=== PATIENT | female | born 1945 | race African-American/Black ===

== ENCOUNTER 2016-10-05 21:53 | Inpatient (IN) ==
[2016-10-05] MEDS ORDERED: ALBUTEROL 2.5 MG/3 ML NEB RESP TX STA (22:22)
[2016-10-05] MEDS ORDERED: methylPREDNISolone SOD SUC 125 MG/2 ML VIAL IV ONE (22:22)
[2016-10-05] MEDS ORDERED: methylPREDNISolone SOD SUC 125 MG/2 ML VIAL ONE (22:29)
[2016-10-05 22:58] LABS: Calcium 8.8 MG/DL (8.5-10.1); Magnesium 1.9 MG/DL (1.8-2.4); Osmolality,Calculated 294.8 MOS/KG (273-304); Potassium 3.9 MMOL/L (3.5-5.1)
[2016-10-05 23:04] LABS: Basophils % 0.2 % (0.0-0.8); Eosinophils % 0.6 % (0.00-10.9); Hemoglobin 12.1 GM/DL (12.0-16.0); Immature Granulocytes % 0.4 %; Immature Granulocytes Absolute 0.02 #; Lymphocytes # 2.9 10*3/uL (1.4-4.0); Lymphocytes % 57.4 % (21.3-54.2); Mean Corpuscular HGB Conc 32.7 GM/DL (32-36); Mean Corpuscular Hemoglobin 27 PG (27-34); Mean Corpuscular Volume 83.7 FL (87-102); Mean Platelet Volume 10.9 FL (9.6-12.0); Monocytes # 0.3 10*3/uL (0.11-0.8); Monocytes % 6.6 % (1.7-12.7); Neutrophils # 1.7 10*3/uL (1.4-7.4); Neutrophils % 34.8 % (38.7-73.9); Platelet Count 185 T/CUMM (130-400); Red Blood Count 4.42 MC/CUMM (3.8-5.5); Red Cell Distribution Width 14.1 % (9.3-17.3)
--- NOTE | 2016-10-05 23:04 | Emergency Department Note ---
Daniel Patten Emily, am scribing for, and in the presence of, Qasim Saeed MD 22: 30. Christophe Patten Robert M, MD, personally performed the services described in this documentation, ascribed by Hilda Sanchez in my presence, and it is both accurate and complete . Arrival - Arrival Chief Complaint: Shortness of Breath Stated Complaint: Wheezing/SOB/headache/dehydaration/chest pain ED Nursing Triage Note: Patient to room. She states that she has been short of breath for 2 months. She states she has been to multiple doctors and is not getting any better. Patient does have auible wheezing in triage. Patient has hx of lung cancer. Patient has had the right middle and lower lobe removed. Mode of Arrival: Ambulatory Limitations: No Limitations Source: Patient Time Seen by Provider: 10/05/16 22:14 - History of Present Illness HPI Narrative: Pt is a 71 y/o female who came to ED with c/o SOB that has been ongoing for 2 months now. Pt has seen multiple providers that prescribed abx, steroids, and breathing tx; with no relief. Pt has had coughing, subjective fevers, wheezing , but denies chest pain or any other pains. Pt denies smoking, ever. PMHx of right middle and lower lobe of lung removed in 2009 in [place], HTN, IDMM. Onset (ago): month(s) Consistency: constant Severity: mild, moderate Severity scale (1-10): 4 Quality: fullness Allergies/Adverse Reactions: Allergies Allergy/AdvReac Type Severity Reaction Status Date / Time lisinopril Allergy ANAPHYLAXIS Verified 10/05/16 22:04 Review of System - Review of System 12 point system: reviewed and no additional remarkable complaints except as stated - Review of System Constitutional: Present: fever (sunjective). Absent: chills Respiratory: Present: cough, respiratory distress, wheezing Cardiovascular: Absent: chest pain, palpitations, edema Gastrointestinal: Absent: abdominal pain, nausea, vomiting Musculoskeletal: Absent: arm pain, back pain, leg pain, neck pain Skin: Absent: rash Neurological: Absent: headache Medical,Surgical,& Family Hx - Medical History Cardio: History of: Hypertension Endocrine: History of: Diabetes Mellitus (IDDM) Respiratory: History of: Asthma, Bronchitis, Lung Cancer - Surgical History Thoracic Surgeries: Surgical HX of;: Lobectomy Abdominal Surgeries: Surgical HX of: Hernia Repair - Family History Family History: noncontributory - Social History Smoking Status: Never smoker Frequency of Alcohol Use: None Type of Drug Use: None Functional capacity: independent ambulation Exam Vital Signs: Vital Signs Temperature 97.7 F 10/05/16 22:32 Pulse Rate 79 10/05/16 22:35 Respiratory Rate 26 H 10/05/16 22:35 Blood Pressure 143/77 10/05/16 22:32 O2 Sat by Pulse Oximetry 100 10/05/16 22:35 - General General appearance: alert, in no apparent distress, obese - Head Head exam: Present: atraumatic, normocephalic - Eye Eye exam: Present: PERRL, EOMI - ENT ENT exam: Present: mucous membranes moist. Absent: mucous membranes dry - Neck Neck exam: Present: full ROM. Absent: tenderness - Chest Chest inspection: Present: symmetric chest wall rise, tenderness - Respiratory Respiratory exam: Present: respiratory distress, wheezes (diffusely), other ( tachypneic; too distant to speak). Absent: normal lung sounds bilaterally - Cardiovascular Cardiovascular exam: Present: regular rate, normal rhythm, normal heart sounds - Abdominal Exam Abdominal exam: Present: soft. Absent: tenderness - Extremities Exam Extremities exam: Present: full ROM. Absent: tenderness, pedal edema - Neurological Exam Neurological exam: Present: alert, oriented X3, CN II-XII intact. Absent: motor sensory deficit - Psychiatric Psychiatric exam: Present: normal affect, normal mood - Skin Skin exam: Present: warm, dry, intact, normal color Course - Consultations Consultation #1: Dr. Jens Duncan will evaluate and admit the patient. Time: 23:29 Results - Labs CBC & BMP: 10/05/16 22:13 10/05/16 22:13 Disposition Clinical Impression: Reversible obstructive airway disease Case discussed with: patient, patient's family Disposition: Still a Patient Condition: Stable Time of Disposition: 23:30
[2016-10-05 23:58] LABS: Band Neutrophils 2 % (0-10); Lymphocytes 58 % (20-55); Platelet Estimate Normal; Segmented Neutrophils 32 % (50-85); Total Cells Counted 100
[2016-10-05 23:59] LABS: Hypochromasia Slight
--- NOTE | 2016-10-06 00:25 | Hospitalist History & Physical ---
Assessment and Plan (1) Asthma exacerbation Status: Acute Current Visit: Yes (2) History of lung cancer Status: Acute Current Visit: Yes (3) Hypertension Status: Acute Current Visit: Yes (4) Diabetes Status: Acute Assessment and plan: Admit patient to our service. Schedule her breathing treatments scheduled steroids. Currently no clear indication for antibiotics. Accu-Cheks before meals and at bedtime. Consult pulmonary. Patient would benefit from a ice puller locally. We will start her on high-dose sliding scale for now. Current Visit: Yes History of Present Illness Chief complaint: Shortness of breath History of present illness: Ms. Rich is a 71 year old female with medical problems including history of lung cancer status post surgery in 2009, asthma, diabetes, and hypertension has been experiencing shortness of breath and wheezing 2 months. Patient still does report that she has been to multiple doctors including her lung doctor in [place]. She also follows with an oncologist in [place]. She goes to [facility] in [facility]. She has been to the ER in [place] several times with these complaints. Family reports that it seems to improve with steroids initially then it comes back. The symptoms have come to a point where she wheezes all the time is on schedule breathing treatments every 4 hours. I was consulted to admit the patient to the emergency room. Patient has audible wheezing. Home Medications Medication Instructions Recorded Confirmed Type Amlodipine Besylate [Amlodipine 2.5 mg PO DAILY 10/06/16 10/06/16 History Besylate] Aspirin 325 mg PO DAILY 10/06/16 10/06/16 History Bumetanide [Bumetanide] 2 mg PO DAILY 10/06/16 10/06/16 History Cinnamon Bark [Cinnamon] 500 mg PO DAILY 10/06/16 10/06/16 History Doxycycline Hyclate [Doxycycline 100 mg PO BID 10/06/16 10/06/16 History Hyclate] Ezetimibe [Zetia] 10 mg PO DAILY 10/06/16 10/06/16 History Gabapentin [Gabapentin] 300 mg PO BID 10/06/16 10/06/16 History Loratadine Tab [Claritin Tab] 10 mg PO DAILY 10/06/16 10/06/16 History Lubiprostone [Amitiza] 24 mcg PO BID 10/06/16 10/06/16 History Metformin HCl [Metformin HCl] 850 mg PO BID W/MEALS 10/06/16 10/06/16 History [place]-3S/Dha/Epa/Fish Oil [Fish 1 each PO DAILY 10/06/16 10/06/16 History Oil [place]-3 Softgel] Promethazine HCl [Promethazine HCl] 25 mg PO Q4-6H PRN 10/06/16 10/06/16 History Rosuvastatin Calcium [Rosuvastatin 10 mg PO BEDTIME 10/06/16 10/06/16 History Calcium] Tizanidine HCl [Tizanidine HCl] 4 mg PO BID 10/06/16 10/06/16 History Tramadol HCl [Tramadol Tab] 50 mg PO Q6HR PRN 10/06/16 10/06/16 History predniSONE TAB [PredniSONE] 10 mg PO DAILY 10/06/16 10/06/16 History Allergies Allergy/AdvReac Type Severity Reaction Status Date / Time lisinopril Allergy ANAPHYLAXIS Verified 10/05/16 22:04 Medical,Surgical,& Family Hx - Medical History Cardio: History of: Hypertension Endocrine: History of: Diabetes Mellitus (IDDM) Respiratory: History of: Asthma, Bronchitis, Lung Cancer - Surgical History Thoracic Surgeries: Surgical HX of;: Lobectomy Abdominal Surgeries: Surgical HX of: Hernia Repair - Family History Family History: Reports;: Family Cancer, Family Diabetes, Family Heart Disease - Social History Smoking Status: Never smoker Frequency of Alcohol Use: None Type of Drug Use: None 12 point system: reviewed and no additional remarkable complaints except as stated Exam - Constitutional Vitals: - General General appearance: alert, in no apparent distress, obese - Head Head exam: Present: atraumatic, normocephalic - Eye Eye exam: Present: PERRL, EOMI - ENT ENT exam: Present: mucous membranes moist. Absent: mucous membranes dry - Neck Neck exam: Present: full ROM. Absent: tenderness - Chest Chest inspection: Present: symmetric chest wall rise, tenderness - Respiratory Respiratory exam: Present: respiratory distress, wheezes bilateral - Cardiovascular Cardiovascular exam: Present: regular rate, normal rhythm, normal heart sounds - Abdominal Exam Abdominal exam: Present: soft. Absent: tenderness - Extremities Exam Extremities exam: Present: full ROM. Absent: tenderness, pedal edema - Neurological Exam Neurological exam: Present: alert, oriented X3, CN II-XII intact. Absent: motor sensory deficit - Psychiatric Psychiatric exam: Present: normal affect, normal mood - Skin Skin exam: Present: warm, dry, intact, normal color Results - Labs CBC & BMP: 10/05/16 22:13 10/06/16 02:42
[2016-10-06] MEDS ORDERED: ONDANSETRON 4 MG/2 ML VIAL IV PRN (00:31)
[2016-10-06] MEDS ORDERED: DEXTROSE 50% 25 GM/50 ML VIAL IV PRN ×2 (00:31)
[2016-10-06] MEDS ORDERED: ACETAMINOPHEN 325 MG TABLET PO PRN (00:31)
[2016-10-06] MEDS ORDERED: ALBUTEROL 2.5 MG/3 ML NEB RESP TX PRN (00:31)
[2016-10-06] MEDS ORDERED: GLUCAGON 1 MG VIAL IM PRN ×2 (00:31)
[2016-10-06] MEDS ORDERED: traMADol 50 MG TABLET PO PRN (01:40)
[2016-10-06] MEDS ORDERED: PROMETHAZINE 25 MG TABLET PO PRN (01:40)
[2016-10-06] MEDS: ALBUTEROL/IPRATROPIUM 3 ML NEB RESP TX SCH ×4 (01:51→19:44)
[2016-10-06] MEDS: ENOXAPARIN 40 MG/0.4 ML SYRINGE SUBCUT SCH (03:04)
[2016-10-06] MEDS: MONTELUKAST 10 MG TABLET PO SCH ×2 (03:04→20:18)
[2016-10-06] MEDS: SODIUM CHLORIDE 0.9% 1,000 ML IV SCH ×2 (03:05→20:53)
[2016-10-06] MEDS ORDERED: INSULIN REGULAR 100 UNIT/ML ONE (03:32)
[2016-10-06] MEDS: INSULIN REGULAR 100 UNIT/ML SUBCUT SCH ×5 (03:34→20:53)
[2016-10-06] MEDS ORDERED: INSULIN REGULAR 100 UNIT/ML IV ONE (05:36)
[2016-10-06] MEDS ORDERED: INSULIN REGULAR 100 UNIT/ML SUBCUT ONE (06:30)
[2016-10-06] MEDS: amLODIPine 2.5 MG TABLET PO SCH ×2 (07:29→08:22)
[2016-10-06] MEDS: LORATADINE 10 MG TABLET PO SCH ×2 (07:29→08:22)
[2016-10-06] MEDS: EZETIMIBE 10 MG TABLET PO SCH ×2 (07:30→08:22)
[2016-10-06] MEDS: ASPIRIN 325 MG TABLET PO SCH ×2 (07:30→08:21)
[2016-10-06] MEDS: BUMETANIDE 1 MG TABLET PO SCH ×2 (07:30→08:21)
[2016-10-06] MEDS: methylPREDNISolone SOD SUC 125 MG/2 ML VIAL IV SCH ×3 (07:30→20:18)
[2016-10-06] MEDS: PANTOPRAZOLE 40 MG TABLET PO SCH ×2 (07:30→08:22)
[2016-10-06] MEDS: DOCUSATE SODIUM 100 MG CAPSULE PO PRN ×2 (07:30→20:18)
[2016-10-06] MEDS: OMEGA 3 ACID ETHYL ESTERS 1 GM CAPSULE PO SCH ×2 (07:30→08:22)
[2016-10-06 07:36] LABS: Basophils % 0.2 % (0.0-0.8); Hemoglobin 11.4 GM/DL (12.0-16.0); Immature Granulocytes % 0.5 %; Immature Granulocytes Absolute 0.03 #; Lymphocytes # 1.2 10*3/uL (1.4-4.0); Lymphocytes % 19.8 % (21.3-54.2); Mean Corpuscular HGB Conc 31.7 GM/DL (32-36); Mean Corpuscular Hemoglobin 27 PG (27-34); Mean Corpuscular Volume 85.1 FL (87-102); Mean Platelet Volume 10.2 FL (9.6-12.0); Monocytes # 0.1 10*3/uL (0.11-0.8); Monocytes % 1.6 % (1.7-12.7); Neutrophils # 4.8 10*3/uL (1.4-7.4); Neutrophils % 77.9 % (38.7-73.9); Platelet Count 151 T/CUMM (130-400); Red Blood Count 4.23 MC/CUMM (3.8-5.5); Red Cell Distribution Width 14.1 % (9.3-17.3); White Blood Count 6.2 T/CUMM (4-12)
--- NOTE | 2016-10-06 07:52 | XRay Report ---
History: Chest pain. Shortness of breath Date: 10/05/2016 Study: Chest x-ray AP portable Comparison exam: September 08, 2014 chest x-ray There is stable cardiomegaly. There is no mediastinal mass. The pulmonary vasculature is not engorged. There is mild platelike scarring in the lower lungs. There is no definite acute infiltrate. There is no gross pleural effusion. There is moderate thoracic spondylosis. Impression: No acute cardiopulmonary process. Continued cardiomegaly. Scarring in the lower lungs as before PROCEDURE INTERPRETED AT [facility] DEPARTMENT OF RADIOLOGY Final Report Signed by: Dr. Kimberly Canales
[2016-10-06 08:02] LABS: Calcium 8.6 MG/DL (8.5-10.1); Osmolality,Calculated 296.1 MOS/KG (273-304); Potassium 4.2 MMOL/L (3.5-5.1)
[2016-10-06 08:04] LABS: Band Neutrophils 2 % (0-10); Hypochromasia 1+; Lymphocytes 15 % (20-55); Microcytosis 1+; Ovalocytes Slight; Platelet Estimate Adequate; Segmented Neutrophils 81 % (50-85); Total Cells Counted 100
[2016-10-06] MEDS: GABAPENTIN 300 MG CAPSULE PO SCH ×2 (08:30→20:18)
[2016-10-06] MEDS: tiZANidine 4 MG TABLET PO SCH ×2 (08:30→20:18)
[2016-10-06] MEDS: LUBIPROSTONE 24 MCG CAPSULE PO SCH ×2 (08:30→20:18)
[2016-10-06] MEDS ORDERED: NON-FORMULARY MEDICATION (Cinnamon Bark [Cinnamon] 500 MG) PO SCH (09:00)
[2016-10-06] MEDS ORDERED: DOXYCYCLINE HYCLATE 100 MG CAPSULE PO SCH (09:00)
[2016-10-06] MEDS: INSULIN LISPRO 100 UNIT/ML SUBCUT SCH ×2 (12:15→17:00)
--- NOTE | 2016-10-06 12:24 | Hospitalist Progress Note ---
Assessment and Plan - Time spent with patient Time spent with patient: Greater than 30 minutes (1) Asthma exacerbation Status: Acute Current Visit: Yes (2) History of lung cancer Status: Acute Current Visit: Yes (3) Hypertension Status: Acute Current Visit: Yes (4) Diabetes Status: Acute Assessment and plan: Resume her home insulin at a slightly lower dose, start with Lantus 40 units and lispro have 15 units 3 times daily before meals. Continue respiratory therapy. Taper steroids. No need for IV antibiotics at this time. Reviewed and continue other home medication Anticipate short hospital stay Current Visit: Yes Hospitalist: Subjective Interval history: Admitted overnight for shortness of breath suspected to be related to asthma. Shortness of breath has improved slightly Uncontrolled blood glucose overnight noted, this may have been made worse by steroid. Her fingerstick glucoses have slightly improved this morning. She states that home finger stick glucose is usually in good range. Exam - Constitutional Vitals: Period Temp Pulse Resp BP Sys/[place] Pulse Ox Last 24 Hr 97.3 F-97.5 F 61-82 20-25 134-158/68-99 95-99 General appearance: mild distress, over weight - Head Head exam: Present: normal inspection, normocephalic, atraumatic - Eye Eye exam: Present: EOMI Pupils: Present: CHRIS - Neck Neck exam: Present: normal inspection. Absent: thyromegaly - Respiratory Respiratory exam: Present: rhonchi, wheezes - Cardiovascular Cardiovascular exam: Present: regular rate and rhythm. Absent: JVD - GI/Abdominal GI/Abdominal exam: Present: normal bowel sounds, soft. Absent: ascites, distended, tenderness - Neurological Exam Neurological exam: Present: alert, oriented X3 - Skin Skin exam: Present: normal color, warm, dry Results - Labs CBC & BMP: 10/06/16 06:46 10/06/16 06:46 Lab Results: I have reviewed the past 24 hour labs
--- NOTE | 2016-10-06 19:19 | EKG Report ---
Stationary ECG Study [facility] ER Test Date: 10/05/2016 10:06:08 PM Pat Name: JAXON TA Department: Room: 532 Gender: F Reheater: Watson : 1945 Requested by: Qasim Saeed Order Number: [id number] Reading MD: MANN HART Intervals [place] Rate: 80 P: 49 NM: 173 QRS: 31 QRSD: 103 T: 267 QT: 377 QTc: 413 Interpretive Statements SINUS RHYTHM Electronically Signed On 10-08-16 12:26:44 CDT by MANN HART [email or web address]
[2016-10-06] MEDS: ZALEPLON 5 MG CAPSULE PO PRN (20:18)
[2016-10-06] MEDS: ROSUVASTATIN 10 MG TABLET PO SCH (20:19)
--- NOTE | 2016-10-06 20:50 | Pulmonology Consult Note ---
Assessment and Plan - Time spent with patient Time spent with patient: Greater than 30 minutes (1) Dyspnea Status: Acute Assessment and plan: 71y/o F with reported history of asthma admitted with acute on chronic respiratory distress. Differential includes asthma exacerbation versus cardiac etiology. No evidence of consolidation/pneumonia on chest x-ray. Recommend continuation of current therapy with steroids and bronchodilators as well as evaluation with echocardiogram for underlying heart failure or valvular abnormalities. Current Visit: Yes (2) History of lung cancer Status: Chronic Assessment and plan: Reported prior history of lung cancer status post resection. No abnormalities on chest x-ray to suggest recurrence. Patient should continue following with outpatient pulmonary for surveillance. Current Visit: Yes (3) Diabetes Status: Acute Assessment and plan: Poorly controlled diabetes. Defer to primary team for ongoing management. Current Visit: Yes History of Present Illness Chief complaint: Wheezing and shortness of breath History of present illness: Ms. Rich is a 71 year old female with reported history of lung cancer status post resection as well as asthma admitted for respiratory distress with wheezing. Pulmonary is consulted for further evaluation and management. History is obtained from patient as well as family members. They report patient has had difficulty breathing for 4 months with a waxing waning time course. Patient has been evaluated by multiple providers in [facility] and has reportedly received multiple courses of antibiotics, steroids, and bronchodilators with temporary improvement noted to all. Her main symptoms are shortness of breath at rest as well as with exertion, wheezing and coughing, and recent development of orthopnea requiring her to sleep in a recliner. She has noted trace peripheral edema. She was diagnosed with asthma reportedly 3 years ago and is currently on Flovent. She is a never smoker but does report secondhand smoke exposure. She admits to musculoskeletal chest pain from coughing but denies substernal exertional chest pain. She has had intermittent fevers with her last fever being greater than 101 week ago; no fever since. Her daughter who is her fios line installer has also been complaining of intermittent URI symptoms over the same time course. Home Medications Medication Instructions Recorded Confirmed Type Amlodipine Besylate [Amlodipine 2.5 mg PO DAILY 10/06/16 10/06/16 History Besylate] Aspirin 325 mg PO DAILY 10/06/16 10/06/16 History Bumetanide [Bumetanide] 2 mg PO DAILY 10/06/16 10/06/16 History Cinnamon Bark [Cinnamon] 500 mg PO DAILY 10/06/16 10/06/16 History Ezetimibe [Zetia] 10 mg PO DAILY 10/06/16 10/06/16 History Fenofibrate [Tricor] 145 mg PO DAILY 10/06/16 10/06/16 History Fluticasone 110 Mcg Inhaler 2 puffs BID 10/06/16 10/06/16 History [Flovent 110 mcg Inhaler] Fluticasone 50 Mcg Nasal [place] 1 sprays BID 10/06/16 10/06/16 History [Flonase Nasal [place]] Gabapentin [Gabapentin] 300 mg PO BID 10/06/16 10/06/16 History Insulin Glargine [Lantus] 40 units SUBCUT BEDTIME 10/06/16 10/06/16 History Insulin Lispro [HumaLOG] 30 units SUBCUT TID 10/06/16 10/06/16 History Loratadine Tab [Claritin Tab] 10 mg PO DAILY 10/06/16 10/06/16 History Lubiprostone [Amitiza] 24 mcg PO BID 10/06/16 10/06/16 History Metformin HCl [Metformin HCl] 850 mg PO BID W/MEALS 10/06/16 10/06/16 History [place]-3S/Dha/Epa/Fish Oil [Fish 1 each PO DAILY 10/06/16 10/06/16 History Oil [place]-3 Softgel] Promethazine HCl [Promethazine HCl] 25 mg PO Q4-6H PRN 10/06/16 10/06/16 History Rosuvastatin Calcium [Rosuvastatin 10 mg PO BEDTIME 10/06/16 10/06/16 History Calcium] Tizanidine HCl [Tizanidine HCl] 2 mg PO BID 10/06/16 10/06/16 History Tramadol HCl [Tramadol Tab] 50 mg PO Q6HR PRN 10/06/16 10/06/16 History predniSONE TAB [PredniSONE] 10 mg PO DAILY 10/06/16 10/06/16 History Allergies Allergy/AdvReac Type Severity Reaction Status Date / Time lisinopril Allergy ANAPHYLAXIS Verified 10/06/16 06:31 - Constitutional Constitutional: Present: as per HPI - EENT Eyes: Present: as per HPI - Cardiovascular Cardiovascular: Present: as per HPI - Respiratory Respiratory: Present: as per HPI - Gastrointestinal Gastrointestinal: Present: as per HPI - Genitourinary Genitourinary: Present: as per HPI - Musculoskeletal Musculoskeletal: Present: as per HPI - Neurological Neurological: Present: as per HPI - Psychiatric Psychiatric: Present: as per HPI - Endocrine Endocrine: Present: as per HPI - Hematologic/Lymphatic Hematologic/Lymphatic: Present: as per HPI Exam (Pulmonay) H&P - Constitutional Vitals: Period Temp Pulse Resp BP Sys/[place] Pulse Ox Last 24 Hr 97.3 F-98.3 F 56-82 18-25 121-158/59-99 93-99 General appearance: over weight - Head Head exam: Present: normal inspection - Eye Eye exam: Present: EOMI Pupils: Present: CHRIS - Neck Neck exam: Present: normal inspection - Respiratory Respiratory exam: Present: decreased breath sounds, wheezes (Inspiratory and expiratory wheezes noted bilaterally). Absent: accessory muscle use, rales, rhonchi, stridor - Cardiovascular Cardiovascular exam: Present: regular rate and rhythm. Absent: gallop, rubs, systolic murmur - GI/Abdominal GI/Abdominal exam: Present: normal bowel sounds, distended, soft. Absent: tenderness - Extremities Exam Extremities exam: Present: normal inspection. Absent: edema - Neurological Exam Neurological exam: Present: alert, oriented X3, CN II-XII intact - Psychiatric Psychiatric exam: Present: normal affect - Skin Skin exam: Present: warm, dry Medical,Surgical,& Family Hx - Medical History Cardio: History of: Hypertension HEENT: History of: HEENT Problems (reports ear surgery- name of surgery unknown) Endocrine: History of: Diabetes Mellitus (IDDM) Respiratory: History of: Asthma, Bronchitis, Lung Cancer - Surgical History Thoracic Surgeries: Surgical HX of;: Lobectomy HEENT Surgeries: Surgical HX of: Tonsilectomy & Adenoidectomy (tonsilectomy) Abdominal Surgeries: Surgical HX of: Hernia Repair Reproductive Surgeries: Surgical HX of;: Hysterectomy - Family History Family History: Reports;: Family Cancer, Family Diabetes, Family Heart Disease, Family Hypertension (mother, dad, brother, grandmother), Additional Family History (asthma- brothers and mother) - Social History Smoking Status: Never smoker Frequency of Alcohol Use: None Type of Drug Use: None Results - Labs CBC & BMP: 10/06/16 06:46 10/06/16 06:46 - EKG EKG results: WNL - Diagnostic Findings Procedure: Chest x-ray: image reviewed by me (Cardiomegaly. No acute abnormalities.)
[2016-10-06] MEDS ORDERED: INSULIN GLARGINE 100 UNIT/ML SUBCUT SCH (21:00)
[2016-10-07] MEDS: ALBUTEROL/IPRATROPIUM 3 ML NEB RESP TX SCH ×4 (00:37→19:28)
[2016-10-07] MEDS: ENOXAPARIN 40 MG/0.4 ML SYRINGE SUBCUT SCH (01:27)
[2016-10-07] MEDS: methylPREDNISolone SOD SUC 125 MG/2 ML VIAL IV SCH ×3 (01:29→13:28)
[2016-10-07] MEDS: LORATADINE 10 MG TABLET PO SCH ×2 (07:44→08:23)
[2016-10-07] MEDS: LUBIPROSTONE 24 MCG CAPSULE PO SCH ×3 (07:44→20:14)
[2016-10-07] MEDS: EZETIMIBE 10 MG TABLET PO SCH ×2 (07:44→08:23)
[2016-10-07] MEDS: amLODIPine 2.5 MG TABLET PO SCH ×2 (07:44→08:23)
[2016-10-07] MEDS: tiZANidine 4 MG TABLET PO SCH ×3 (07:44→20:14)
[2016-10-07] MEDS: BUMETANIDE 1 MG TABLET PO SCH ×2 (07:44→08:23)
[2016-10-07] MEDS: PANTOPRAZOLE 40 MG TABLET PO SCH ×2 (07:45→08:23)
[2016-10-07] MEDS: OMEGA 3 ACID ETHYL ESTERS 1 GM CAPSULE PO SCH ×2 (07:45→08:23)
[2016-10-07] MEDS: ASPIRIN 325 MG TABLET PO SCH ×2 (07:45→08:23)
[2016-10-07] MEDS: DOCUSATE SODIUM 100 MG CAPSULE PO PRN ×2 (07:45→20:14)
[2016-10-07] MEDS: GABAPENTIN 300 MG CAPSULE PO SCH ×3 (07:45→20:14)
[2016-10-07] MEDS: INSULIN REGULAR 100 UNIT/ML SUBCUT SCH ×4 (07:46→20:25)
[2016-10-07] MEDS: INSULIN LISPRO 100 UNIT/ML SUBCUT SCH ×3 (07:46→16:59)
[2016-10-07] MEDS ORDERED: INSULIN GLARGINE 100 UNIT/ML SUBCUT SCH (12:36)
--- NOTE | 2016-10-07 12:36 | Hospitalist Progress Note ---
Assessment and Plan - Time spent with patient Time spent with patient: Greater than 30 minutes (1) Asthma exacerbation Status: Acute Current Visit: Yes (2) History of lung cancer Status: Chronic Current Visit: Yes (3) Hypertension Status: Acute Current Visit: Yes (4) Diabetes Status: Acute Assessment and plan: We will increase Lantus to 50 units and continue lispro have 15 units 3 times daily before meals along with sliding scale correctional insulin. Monitor fingerstick glucose and continue to adjust as needed. Hopefully fingerstick glucose should improve as we taper steroids Continue respiratory therapy. Taper steroids to q. 12 hourly dose. Discontinue IV fluids since she is tolerating orally. Obtain echocardiogram and review with report. Current Visit: Yes Hospitalist: Subjective Interval history: Respiratory status much improved, still has some mild dyspnea on exertion. I agree with obtaining an echocardiogram to rule out any cardiac component to the shortness of breath. Appreciate pulmonology input. Fingerstick glucose better but still uncontrolled, likely effect of steroid. No fever Exam - Constitutional Vitals: Period Temp Pulse Resp BP Sys/[place] Pulse Ox Last 24 Hr 97.2 F-98.3 F 54-73 16-21 110-136/46-72 93-99 General appearance: over weight - Head Head exam: Present: normal inspection, normocephalic, atraumatic - ENT ENT exam: Present: normal external ear exam - Respiratory Respiratory exam: Present: rhonchi, wheezes - Cardiovascular Cardiovascular exam: Present: regular rate and rhythm - GI/Abdominal GI/Abdominal exam: Present: normal bowel sounds, soft. Absent: tenderness - Extremities Exam Extremities exam: Absent: edema - Neurological Exam Neurological exam: Present: alert, oriented X3, normal gait - Skin Skin exam: Present: normal color, warm, dry Results - Labs CBC & BMP: 10/06/16 06:46 10/06/16 22:07 Lab Results: I have reviewed the past 24 hour labs
[2016-10-07] MEDS ORDERED: POLYETHYLENE GLYCOL POWDER 17 GM PACK PO PRN (13:03)
[2016-10-07] MEDS: MAGNESIUM HYDROXIDE SUSP 30 ML UDCUP PO PRN ×2 (13:28→20:15)
--- NOTE | 2016-10-07 17:13 | ECHO Report ---
Fabiola Rich Exam Date: 10/07/2016 10:37 Referring Physician: Technologist: Brittany Philip RDCS Age: 71 Ht (in): 67 Wt (lb): 237 Gender: F Exam [facility]: [facility] Echo Indications: Acute on chronic respiratory distress, Shortness of breath, hx Lung CA with resection, IDDM, Asthma exacerbation, Essential (primary) hypertension BP: 121 / 69 HR: 54 Rhythm: Sinus Technical Quality: Fair to good IMPRESSIONS 1. Left ventricle is probably mildly dilated with overall normal ejection fraction being about 55+ percent. Mild left ventricle hypertrophy. 2. Right ventricle is normal size and function. 3. Right atrium and left atrium at worst mildly dilated. 4. At worse mild mitral valve regurgitation. 5. Minimally sclerotic aortic valve otherwise structurally functioning normal. 6. Trace to mild tricuspid regurgitation. 7. There is no significantly elevated right-sided pressures. MEASUREMENTS (Male / Female) Normal Values 2D ECHO LV Diastolic Diameter PLAX 5.7 cm 4.2 - 5.9 / 3.9 - 5.3 cm LV Systolic Diameter PLAX 3.5 cm LV Fractional Shortening PLAX 38.8 % IVS Diastolic Thickness 1.3 cm 0.6 - 1.0 / 0.6 - 0.9 cm LVPW Diastolic Thickness 1.3 cm 0.6 - 1.0 / 0.6 - 0.9 cm RV Internal Dim ED PLAX 2.8 cm Aortic Root Diameter 3.2 cm LA Systolic Diameter LX 4.5 cm 3.0 - 4.0 / 2.7 - 3.8 cm DOPPLER TR Peak Velocity 266.0 cm/s TR Peak Gradient 28.3 mmHg FINDINGS Left Ventricle Mildly increased left ventricular cavity size. Mild left ventricular hypertrophy. Left ventricular ejection fraction is estimated at 55+ percent. Right Ventricle The right ventricle is normal in size and function. Right Atrium The right atrium is mildly enlarged. Left Atrium The left atrium is mildly enlarged. Mitral Valve Morphologically normal mitral valve. Mild mitral valve regurgitation. Aortic Valve Aortic valve tricuspid structure with minimal sclerosis and without stenosis or regurgitation. Tricuspid Valve Morphologically normal tricuspid valve. Trace to mild tricuspid valve regurgitation. Tricuspid regurgitation velocities suggest a PAP of 38 mmHg. Pulmonic Valve Morphologically normal pulmonic valve without significant stenosis. There is no pulmonic regurgitation. Pericardium Normal pericardium without effusion. Aorta Normal ascending aorta dimension. Jens Stack MD (Electronically Signed) Final Date: 07 October 2016 17:12
[2016-10-07] MEDS: MONTELUKAST 10 MG TABLET PO SCH (20:14)
[2016-10-07] MEDS: ROSUVASTATIN 10 MG TABLET PO SCH (20:15)
[2016-10-07] MEDS: ZALEPLON 5 MG CAPSULE PO PRN (20:15)
[2016-10-08] MEDS: methylPREDNISolone SOD SUC 125 MG/2 ML VIAL IV SCH (00:23)
[2016-10-08] MEDS: ENOXAPARIN 40 MG/0.4 ML SYRINGE SUBCUT SCH ×2 (00:23→08:30)
[2016-10-08] MEDS: ALBUTEROL/IPRATROPIUM 3 ML NEB RESP TX SCH ×4 (00:57→20:10)
[2016-10-08] MEDS: INSULIN REGULAR 100 UNIT/ML SUBCUT SCH ×4 (08:29→21:52)
[2016-10-08] MEDS: INSULIN LISPRO 100 UNIT/ML SUBCUT SCH ×3 (08:29→17:29)
[2016-10-08] MEDS: tiZANidine 4 MG TABLET PO SCH ×2 (08:30→21:52)
[2016-10-08] MEDS: PANTOPRAZOLE 40 MG TABLET PO SCH (08:30)
[2016-10-08] MEDS: BUMETANIDE 1 MG TABLET PO SCH (08:30)
[2016-10-08] MEDS: amLODIPine 2.5 MG TABLET PO SCH (08:30)
[2016-10-08] MEDS: LUBIPROSTONE 24 MCG CAPSULE PO SCH ×2 (08:30→21:52)
[2016-10-08] MEDS: ASPIRIN 325 MG TABLET PO SCH (08:30)
[2016-10-08] MEDS: EZETIMIBE 10 MG TABLET PO SCH (08:30)
[2016-10-08] MEDS: LORATADINE 10 MG TABLET PO SCH (08:30)
[2016-10-08] MEDS: GABAPENTIN 300 MG CAPSULE PO SCH ×2 (08:30→21:52)
[2016-10-08] MEDS: OMEGA 3 ACID ETHYL ESTERS 1 GM CAPSULE PO SCH (08:30)
--- NOTE | 2016-10-08 08:46 | Pulmonology Progress Note ---
Pulmonary - PN: Subj Interval history: This 71-year-old black female has a history of a previous right middle and lower lobectomy. This was done in [place] about 10 years ago. She has had intermittent episodes of bronchitis and wheezing ever since. She is a non- smoker. She did have asthma as a child. She says she has never been told that she has asthma now. She comes in now with increased cough congestion shortness of breath. She tells me that she has been on an inhaler but I do not see it listed on her home medications. Exam (Progress Note) - Constitutional Vitals: Period Temp Pulse Resp BP Sys/Livingston Pulse Ox Last 24 Hr 97.8 F-98.8 F 50-92 12-20 118-155/57-70 96-100 Exam: Patient is alert seems oriented. Vital signs normal. Pupils react to light. Throat is clear. Neck supple no bruits. Chest reveals bilateral expiratory wheezes. She is not tight. Heart normal rate rhythm no murmurs no rubs no gallops. Abdomen soft nontender no masses. Extremities no clubbing cyanosis or edema. Calves nontender. Results - Labs CBC & BMP: 10/06/16 06:46 10/06/16 22:07 Lab Results: I have reviewed the past 24 hour labs - Diagnostic Findings Procedure: Chest x-ray: image reviewed by me (Lungs are clear. Heart slightly enlarged.) Assessment and Plan (1) Asthma exacerbation Status: Acute Assessment and plan: Based on her history, I do think she has asthma. It appears that she has an acute exacerbation likely due to bronchitis. Will treat with steroid bronchodilators and antibiotics. Her blood sugars have been in the 400s so we might want to cut her steroids back a little. Current Visit: Yes (2) Diabetes Status: Acute Assessment and plan: Glucoses are not well controlled at present. Adjust medications. Current Visit: Yes (3) Hypertension Status: Acute Assessment and plan: Blood pressure fairly well controlled. Current Visit: Yes (4) History of lung cancer Status: Chronic Assessment and plan: Apparently had a right middle and lower lobes removed in [place] about 10 years ago. Family is not clear about the type of lung cancer. Patient was never a smoker. We need to get the details of this from [place]. Current Visit: Yes
[2016-10-08] MEDS ORDERED: methylPREDNISolone SOD SUC 40 MG/1 ML VIAL IV SCH (08:48)
[2016-10-08] MEDS ORDERED: SODIUM PHOSPHATE ENEMA 133 ML BOTTLE RECTAL PRN (12:34)
--- NOTE | 2016-10-08 16:26 | Hospitalist Progress Note ---
Assessment and Plan (1) Bronchitis Status: Acute Assessment and plan: Pulmonary following. Recommending inhaled Steroid Bronchodialator. Will initiate Symbicort.Also, recommended initiation of abx. Will start with azithro and monitor. No overt signs of infection but may benefit from the mild anti- inflammatory effects. Holding off on quinolones given the unpredictable effects on glucose control. Current Visit: Yes (2) Bronchitis Status: Acute Current Visit: Yes (3) History of lung cancer Status: Chronic Current Visit: Yes (4) Hypertension Status: Acute Current Visit: Yes (5) Diabetes Status: Acute Assessment and plan: Hyperglycemia is likely exacerbated by IV steroid administration. Will decrease Solumedrol and increase bedtime glargine to 55 units. Current Visit: Yes Qualifiers: Diabetes mellitus complication status: with hyperglycemia (6) Dyspnea Status: Acute Current Visit: Yes Hospitalist: Subjective Interval history: Patient alert and oriented. Nasal O2 in place. Sitting up at the beside. Still with SOB with minimal activity and cough. States that she is only minimally better. Currently, on IV Solumedrol, Singular, and Duonebs. Still with significant expiratory wheezing. Not currently on inhaled steorids, however, feel that she would from steroid bronchdialators, as per Pulm. Exam - Constitutional Vitals: Period Temp Pulse Resp BP Sys/Livingston Pulse Ox Last 24 Hr 97.7 F-98.8 F 50-92 12-20 124-155/57-75 96-100 General appearance: no acute distress - Head Head exam: Present: normal inspection - Eye Eye exam: Present: EOMI - Respiratory Respiratory exam: Present: wheezes (Expiratory) - Cardiovascular Cardiovascular exam: Present: regular rate and rhythm - GI/Abdominal GI/Abdominal exam: Present: normal bowel sounds, soft. Absent: distended, tenderness - Neurological Exam Neurological exam: Present: alert, oriented X3, CN II-XII intact - Psychiatric Psychiatric exam: Present: normal affect, normal mood - Skin Skin exam: Present: normal color, warm, dry Results - Labs CBC & BMP: 10/06/16 06:46 10/06/16 22:07
[2016-10-08] MEDS: methylPREDNISolone SOD SUC 40 MG/1 ML VIAL IV SCH (17:33)
[2016-10-08] MEDS: MONTELUKAST 10 MG TABLET PO SCH (21:52)
[2016-10-08] MEDS: ROSUVASTATIN 10 MG TABLET PO SCH (21:52)
[2016-10-08] MEDS: INSULIN GLARGINE 100 UNIT/ML SUBCUT SCH (21:54)
[2016-10-08] MEDS: BUDESONIDE/FORMOTEROL 160-4.5 INHALER 6 GM INH SCH (22:02)
[2016-10-09] MEDS: ALBUTEROL/IPRATROPIUM 3 ML NEB RESP TX SCH ×4 (01:00→19:39)
[2016-10-09] MEDS: methylPREDNISolone SOD SUC 40 MG/1 ML VIAL IV SCH ×2 (04:30→17:43)
[2016-10-09] MEDS: INSULIN REGULAR 100 UNIT/ML SUBCUT SCH ×4 (09:07→20:12)
[2016-10-09] MEDS: INSULIN LISPRO 100 UNIT/ML SUBCUT SCH ×3 (09:08→17:42)
[2016-10-09] MEDS: guaiFENesin 200 MG/10 ML UDCUP PO PRN ×2 (09:09→20:06)
[2016-10-09] MEDS: OMEGA 3 ACID ETHYL ESTERS 1 GM CAPSULE PO SCH (09:09)
[2016-10-09] MEDS: GABAPENTIN 300 MG CAPSULE PO SCH ×2 (09:09→20:07)
[2016-10-09] MEDS: tiZANidine 4 MG TABLET PO SCH ×2 (09:10→20:06)
[2016-10-09] MEDS: EZETIMIBE 10 MG TABLET PO SCH (09:10)
[2016-10-09] MEDS: ASPIRIN 325 MG TABLET PO SCH (09:10)
[2016-10-09] MEDS: BUMETANIDE 1 MG TABLET PO SCH (09:10)
[2016-10-09] MEDS: LORATADINE 10 MG TABLET PO SCH (09:10)
[2016-10-09] MEDS: DOCUSATE SODIUM 100 MG CAPSULE PO PRN ×2 (09:10→20:07)
[2016-10-09] MEDS: amLODIPine 2.5 MG TABLET PO SCH (09:10)
[2016-10-09] MEDS: PANTOPRAZOLE 40 MG TABLET PO SCH (09:10)
[2016-10-09] MEDS: LUBIPROSTONE 24 MCG CAPSULE PO SCH ×2 (09:10→20:06)
[2016-10-09] MEDS: ENOXAPARIN 40 MG/0.4 ML SYRINGE SUBCUT SCH (09:10)
[2016-10-09] MEDS: BUDESONIDE/FORMOTEROL 160-4.5 INHALER 6 GM INH SCH ×2 (09:11→20:08)
--- NOTE | 2016-10-09 09:15 | Pulmonology Progress Note ---
Pulmonary - PN: Subj Interval history: This 71-year-old black female has a history of a previous right middle and lower lobectomy. This was done in [place] about 10 years ago. She has had intermittent episodes of bronchitis and wheezing ever since. She is a non- smoker. She did have asthma as a child. She says she has never been told that she has asthma now. She comes in now with increased cough congestion shortness of breath. She tells me that she has been on an inhaler but I do not see it listed on her home medications. 10/09/2016 we have obtained records from [facility] from 2009. 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 At present she is feeling better less wheezing. Blood sugars are down a bit after her steroids have been reduced. She has completed her Vibramycin. Probably could change to oral prednisone and plan discharge in the next couple of days. Exam (Progress Note) - Constitutional Vitals: Period Temp Pulse Resp BP Sys/Livingston Pulse Ox Last 24 Hr 97.0 F-98.6 F 53-87 18-20 114-136/59-75 96-100 Exam: Patient is alert seems oriented. Vital signs normal. Pupils react to light. Throat is clear. Neck supple no bruits. Chest reveals only minimal wheezes. She is not tight. Heart normal rate rhythm no murmurs no rubs no gallops. Abdomen soft nontender no masses. Extremities no clubbing cyanosis or edema. Calves nontender. Results - Labs CBC & BMP: 10/06/16 06:46 10/06/16 22:07 Lab Results: I have reviewed the past 24 hour labs Labs: Glucoses are down in the 100s today. Assessment and Plan (1) Asthma exacerbation Status: Acute Assessment and plan: Based on her history, I do think she has asthma. It appears that she has an acute exacerbation likely due to bronchitis. Will treat with steroid bronchodilators and antibiotics. Her blood sugars have been in the 400s so we might want to cut her steroids back a little. 10/09/2016 asthma exacerbation with bronchitis has improved. She is now off doxycycline. She is on 20 mg twice daily of Solu-Medrol. Probably could be changed to oral steroids. Will need them another 5 days or so. Current Visit: Yes (2) Diabetes Status: Acute Assessment and plan: Glucoses are not well controlled at present. Adjust medications. 07/11/2016 blood sugars looking better with adjustment of sliding scale and reduction of steroids. Current Visit: Yes Qualifiers: Diabetes mellitus complication status: with hyperglycemia (3) Hypertension Status: Acute Assessment and plan: Blood pressure fairly well controlled. 10/09/2016 blood pressure looks good. Current Visit: Yes (4) History of lung cancer Status: Chronic Assessment and plan: Apparently had a right middle and lower lobes removed in [place] about 10 years ago. Family is not clear about the type of lung cancer. Patient was never a smoker. We need to get the details of this from [place]. 10/09/2016 we have obtained the details from [facility] indicating that she had a right lower lobectomy in 2010 for adenocarcinoma. It was 3 cm in diameter but was stage I. Current Visit: Yes
--- NOTE | 2016-10-09 15:43 | Hospitalist Progress Note ---
Hospitalist: Subjective Interval history: No new complaints. No significant overnight events noted/reported. Cough improving. Dry. No cp. Tolerating po. Does not use oxygen at home per pt. Exam - Constitutional Vitals: Period Temp Pulse Resp BP Sys/Livingston Pulse Ox Last 24 Hr 96.7 F-98.6 F 53-85 18-20 114-136/50-78 96-100 Exam: A and O x 3 RRR no M diminished with slightly prolonged expiratory phase, clear otherwise Soft, NT, ND, +BS Warm no c/c/e Results - Labs CBC & BMP: 10/06/16 06:46 10/06/16 22:07 - Impressions (1) Bronchitis Status: Acute Assessment and plan: Pulmonary following. Cont Symbicort, bronchodilators. Start doxycycline since MRSA screen was positive. No overt signs of infection but may benefit from the mild anti-inflammatory effects. Try to wean oxygen. Current Visit: Yes (2) History of lung cancer Status: Chronic Current Visit: Yes - stage 1 RLL adenocarcinoma (3) Hypertension Status: Acute Current Visit: Yes - controlled. (4) Diabetes mellitus type 2 Status: Acute Assessment and plan: Hyperglycemia is likely exacerbated by IV steroid administration. Improving with decrease Solumedrol. May be able to change to oral steroids tomorrow. Watch accuchecks, Cont insulin for now. 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 Pulm recs reviewed. DC planning
[2016-10-09] MEDS: MONTELUKAST 10 MG TABLET PO SCH (20:07)
[2016-10-09] MEDS: ROSUVASTATIN 10 MG TABLET PO SCH (20:07)
[2016-10-10] MEDS: DOXYCYCLINE HYCLATE 100 MG CAPSULE PO SCH ×3 (00:14→21:41)
[2016-10-10] MEDS: guaiFENesin 200 MG/10 ML UDCUP PO PRN ×2 (00:14→05:34)
[2016-10-10] MEDS: INSULIN GLARGINE 100 UNIT/ML SUBCUT SCH ×2 (00:19→21:41)
[2016-10-10] MEDS: ALBUTEROL/IPRATROPIUM 3 ML NEB RESP TX SCH ×4 (01:04→19:20)
[2016-10-10] MEDS: methylPREDNISolone SOD SUC 40 MG/1 ML VIAL IV SCH (05:28)
--- NOTE | 2016-10-10 08:04 | Pulmonology Progress Note ---
Pulmonary - PN: Subj Interval history: This 71-year-old black female has a history of a previous right middle and lower lobectomy. This was done in [place] about 10 years ago. She has had intermittent episodes of bronchitis and wheezing ever since. She is a non- smoker. She did have asthma as a child. She says she has never been told that she has asthma now. She comes in now with increased cough congestion shortness of breath. She tells me that she has been on an inhaler but I do not see it listed on her home medications. 10/09/2016 we have obtained records from [facility] from 2009. 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 At present she is feeling better less wheezing. Blood sugars are down a bit after her steroids have been reduced. She has completed her Vibramycin. Probably could change to oral prednisone and plan discharge in the next couple of days. 10/10/2016 her bronchospasm is improved. Still having a pretty vigorous cough. Okay with me to change to oral prednisone. Would keep her on about 40 mg a day for 5 more days. Exam (Progress Note) - Constitutional Vitals: Period Temp Pulse Resp BP Sys/Livingston Pulse Ox Last 24 Hr 96.7 F-100.2 F 52-78 18-22 94-137/50-78 98-100 Exam: Patient is alert seems oriented. Vital signs normal. Pupils react to light. Throat is clear. Neck supple no bruits. Chest reveals only minimal wheezes. She is not tight. Heart normal rate rhythm no murmurs no rubs no gallops. Abdomen soft nontender no masses. Extremities no clubbing cyanosis or edema. Calves nontender. Little change from yesterday. Results - Labs CBC & BMP: 10/06/16 06:46 10/06/16 22:07 Lab Results: I have reviewed the past 24 hour labs Assessment and Plan (1) Asthma exacerbation Status: Acute Assessment and plan: Based on her history, I do think she has asthma. It appears that she has an acute exacerbation likely due to bronchitis. Will treat with steroid bronchodilators and antibiotics. Her blood sugars have been in the 400s so we might want to cut her steroids back a little. 10/09/2016 asthma exacerbation with bronchitis has improved. She is now off doxycycline. She is on 20 mg twice daily of Solu-Medrol. Probably could be changed to oral steroids. Will need them another 5 days or so. 10/10/2016 improving. When she is not coughing her lungs sound fairly clear. Only mild expiratory wheezes anteriorly. Again could go to oral prednisone and plan discharge. Current Visit: Yes (2) Diabetes Status: Acute Assessment and plan: Glucoses are not well controlled at present. Adjust medications. 10/09/2016 blood sugars looking better with adjustment of sliding scale and reduction of steroids. 10/10/2016 blood sugars still running high. May need an oral hypoglycemic agent. Current Visit: Yes Qualifiers: Diabetes mellitus complication status: with hyperglycemia (3) Hypertension Status: Acute Assessment and plan: Blood pressure fairly well controlled. 10/09/2016 blood pressure looks good. 10/10/2016 blood pressures are well controlled. Current Visit: Yes (4) History of lung cancer Status: Chronic Assessment and plan: Apparently had a right middle and lower lobes removed in [place] about 10 years ago. Family is not clear about the type of lung cancer. Patient was never a smoker. We need to get the details of this from [place]. 10/09/2016 we have obtained the details from [facility] indicating that she had a right lower lobectomy in 2009 for adenocarcinoma. It was 3 cm in diameter but was stage I. Current Visit: Yes
[2016-10-10] MEDS ORDERED: methylPREDNISolone SOD SUC 40 MG/1 ML VIAL IV ONE (08:56)
[2016-10-10] MEDS: INSULIN REGULAR 100 UNIT/ML SUBCUT SCH ×4 (09:21→21:42)
[2016-10-10] MEDS: INSULIN LISPRO 100 UNIT/ML SUBCUT SCH ×3 (09:22→16:15)
[2016-10-10] MEDS: amLODIPine 2.5 MG TABLET PO SCH (09:23)
[2016-10-10] MEDS: ASPIRIN 325 MG TABLET PO SCH (09:23)
[2016-10-10] MEDS: BUMETANIDE 1 MG TABLET PO SCH (09:23)
[2016-10-10] MEDS: LORATADINE 10 MG TABLET PO SCH (09:24)
[2016-10-10] MEDS: LUBIPROSTONE 24 MCG CAPSULE PO SCH ×2 (09:24→21:41)
[2016-10-10] MEDS: EZETIMIBE 10 MG TABLET PO SCH (09:24)
[2016-10-10] MEDS: tiZANidine 4 MG TABLET PO SCH ×2 (09:34→21:41)
[2016-10-10] MEDS: OMEGA 3 ACID ETHYL ESTERS 1 GM CAPSULE PO SCH (09:34)
[2016-10-10] MEDS: ENOXAPARIN 40 MG/0.4 ML SYRINGE SUBCUT SCH (09:34)
[2016-10-10] MEDS: BUDESONIDE/FORMOTEROL 160-4.5 INHALER 6 GM INH SCH ×2 (09:35→21:46)
[2016-10-10] MEDS: PANTOPRAZOLE 40 MG TABLET PO SCH (09:39)
[2016-10-10] MEDS: GABAPENTIN 300 MG CAPSULE PO SCH ×2 (09:39→21:41)
--- NOTE | 2016-10-10 11:59 | Discharge Summary ---
<Carlos Bruno - Last Filed: 10/10/16 12:30> Hospital Course - Hospital Course Hospital Course: Ms. Rich is a 71 yr old black female patient with a history of lung cancer, htn, and dm that was admitted on 10/05 for complaints of shortness of breath that had progressively worsened over the last several months. The patient had been seen by multiple provider and treated with steroids and antibiotics but patient was only provided with temporary relief of symptoms. Pt. stated that due to issues with breathing she began to have to take scheduled breathing treatments but was still wheezing. Pt. was admitted for treatment. Pulmonary was consulted to assist in care. There was no indication for antibiotics just steroids and breathing treatments. Glucose control was needed for pt; elevated in part to steroid usage. Pt. has improved and is stable to discharge from pulmonary's standpoint. Specialty Discharge - Follow Up or Referrals Follow up with: , PCP [Other] - 2 Weeks Eliot Mcmanus MD [Physician] - 1 Month Discharge Plan - Discharge Data Disposition: Disch To Home/Self Care - Discharge Medications New Budesonide/Formoterol 160-4.5 [Symbicort 160-4.5] 2 puff INH BID #1 inhaler Docusate Sodium Cap [Colace Cap] 100 mg PO BID PRN #0 capsule PRN Reason: Constipation Doxycycline Hyclate Cap [Vibramycin Cap] 100 mg PO BID #10 capsule Insulin Glargine [Lantus] 55 unit SUBCUT BEDTIME unit Montelukast Tab [Singulair Tab] 10 mg PO BEDTIME #30 tablet Polyethylene Glycol Powder [Miralax] 17 gm PO DAILY PRN #0 PRN Reason: Constipation predniSONE TAB [PredniSONE] 40 mg PO DAILY #10 tablet Albuterol/Ipratropium Neb [Duoneb] 3 ml RESP TX RT Q6H #180 Bumetanide Tab [Bumex Tab] 2 mg PO DAILY tablet Insulin Lispro [HumaLOG] 15 unit SUBCUT TID W/MEALS unit Continue Rangely-3S/Dha/Epa/Fish Oil [Fish Oil Rangely-3 Softgel] 1 each PO DAILY Rosuvastatin Calcium 10 mg PO BEDTIME Lubiprostone [Amitiza] 24 mcg PO BID Ezetimibe [Zetia] 10 mg PO DAILY Tramadol HCl [Tramadol Tab] 50 mg PO Q6HR PRN PRN Reason: Pain Aspirin 325 mg PO DAILY Tizanidine HCl 2 mg PO BID Amlodipine Besylate 2.5 mg PO DAILY Metformin HCl 850 mg PO BID W/MEALS Gabapentin 300 mg PO BID Cinnamon Bark [Cinnamon] 500 mg PO DAILY Fenofibrate [Tricor] 145 mg PO DAILY Fluticasone 50 Mcg Nasal [place] [Flonase Nasal [place]] 1 sprays BID predniSONE TAB [PredniSONE] 10 mg PO DAILY #0 Bumetanide 2 mg PO DAILY Loratadine Tab [Claritin Tab] 10 mg PO DAILY Promethazine HCl 25 mg PO Q4-6H PRN PRN Reason: Vomiting Discontinued Insulin Lispro [HumaLOG] 30 units SUBCUT TID Fluticasone 110 Mcg Inhaler [Flovent 110 mcg Inhaler] 2 puffs BID Insulin Glargine [Lantus] 40 units SUBCUT BEDTIME - Follow Up or Referral - Forms/Instructions Exam - Constitutional Vitals: Period Temp Pulse Resp BP Sys/Livingston Pulse Ox Last 24 Hr 97.3 F-100.2 F 52-78 18-22 94-140/54-78 98-100 Discharge Results Labs on day of discharge: Labs from last 24 hours 10/10/16 10/10/16 10/09/16 11:30 07:00 19:22 POC Glucose 326 H 325 H 357 H 10/09/16 15:22 POC Glucose 291 H DS: Provider Date of admission: 10/05/16 23:13 Primary care physician: . No PCP Attending physician on admission: Jaime Castro MD Consults: 10/06/16 00:31 Consult to Physician [CONS] Routine Comment: Consulting Provider: Mayra Benson Consult to Specialist Group: Pulmonology Consult to Physician [CONS] Routine Comment: Consulting Provider: Eliot Mcmanus Consult to Specialist Group: Pulmonology When should Consulting Provider be notified: In am Person Notified: aware Discharging clinician: Carlos Bruno NP <Margi Young - Last Filed: 10/10/16 13:19> Hospital Course - Hospital Course Hospital Course: Pt has clinically improved. She has not had a BM for the last 3 days so we will give a dulcolax suppository prior to dc. SOB has improved. Wean oxygen as tolerated. See orders. - Time spent with patient Time with patient DS: Greater than 30 minutes (46 minutes arranging this discharge) Diagnosis - Discharge Diagnosis (1) Asthma exacerbation Status: Acute (2) Diabetes Status: Acute (3) Hypertension Status: Acute (4) History of lung cancer Status: Chronic Discharge Plan - Discharge Data Condition at Discharge: Stable Discharge Diet: diabetic diet, low salt diet Activity: as per physical therapy Contact your physician if you experience:: fever over 101, Difficulty voiding, Redness or swelling, Nausea/Vomiting Exam - Constitutional Exam: A and O x 3 RRR no M diminished with slightly prolonged expiratory phase, clear otherwise Soft, NT, ND, +BS Warm no c/c/e
[2016-10-10] MEDS ORDERED: BISACODYL 10 MG SUPP RECTAL ONE (12:52)
[2016-10-10] MEDS: MONTELUKAST 10 MG TABLET PO SCH (21:41)
[2016-10-10] MEDS: ROSUVASTATIN 10 MG TABLET PO SCH (21:41)
[2016-10-11] MEDS: ALBUTEROL/IPRATROPIUM 3 ML NEB RESP TX SCH ×2 (00:22→07:45)
[2016-10-11 07:17] VITALS: BP 155/70
--- NOTE | 2016-10-11 07:51 | Pulmonology Progress Note ---
Pulmonary - PN: Subj Interval history: This 71-year-old black female has a history of a previous right middle and lower lobectomy. This was done in [place] about 10 years ago. She has had intermittent episodes of bronchitis and wheezing ever since. She is a non- smoker. She did have asthma as a child. She says she has never been told that she has asthma now. She comes in now with increased cough congestion shortness of breath. She tells me that she has been on an inhaler but I do not see it listed on her home medications. 10/09/2016 we have obtained records from [facility] from 2009. 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 At present she is feeling better less wheezing. Blood sugars are down a bit after her steroids have been reduced. She has completed her Vibramycin. Probably could change to oral prednisone and plan discharge in the next couple of days. 10/10/2016 her bronchospasm is improved. Still having a pretty vigorous cough. Okay with me to change to oral prednisone. Would keep her on about 40 mg a day for 5 more days. 10/11/2016 patient ready for discharge. Lungs sound clear except when she is coughing. She should continue her Symbicort. She follows up with pulmonary in [place] for her asthma, where she had the previous right lower lobectomy for lung cancer. Exam (Progress Note) - Constitutional Vitals: Period Temp Pulse Resp BP Sys/Livingston Pulse Ox Last 24 Hr 97.9 F-99.2 F 51-69 18-20 120-155/55-70 96-100 Exam: Patient is alert seems oriented. Vital signs normal. Pupils react to light. Throat is clear. Neck supple no bruits. Chest is essentially clear. She has prolonged expiratory phase. She is not tight. Heart normal rate rhythm no murmurs no rubs no gallops. Abdomen soft nontender no masses. Extremities no clubbing cyanosis or edema. Calves nontender. Results - Labs CBC & BMP: 10/06/16 06:46 10/06/16 22:07 Lab Results: I have reviewed the past 24 hour labs Assessment and Plan (1) Asthma exacerbation Status: Acute Assessment and plan: Based on her history, I do think she has asthma. It appears that she has an acute exacerbation likely due to bronchitis. Will treat with steroid bronchodilators and antibiotics. Her blood sugars have been in the 400s so we might want to cut her steroids back a little. 10/09/2016 asthma exacerbation with bronchitis has improved. She is now off doxycycline. She is on 20 mg twice daily of Solu-Medrol. Probably could be changed to oral steroids. Will need them another 5 days or so. 10/10/2016 improving. When she is not coughing her lungs sound fairly clear. Only mild expiratory wheezes anteriorly. Again could go to oral prednisone and plan discharge. 10/11/2016 she is ready for discharge. Needs prednisone about 3 days more. Stay on Symbicort long-term. Use albuterol as needed for breakthrough. Current Visit: Yes (2) Diabetes Status: Acute Assessment and plan: Glucoses are not well controlled at present. Adjust medications. 10/09/2016 blood sugars looking better with adjustment of sliding scale and reduction of steroids. 10/10/2016 blood sugars still running high. May need an oral hypoglycemic agent. 10/11/2016 defer to primary service. Glucose is still a little high. Current Visit: Yes Qualifiers: Diabetes mellitus complication status: with hyperglycemia (3) Hypertension Status: Acute Assessment and plan: Blood pressure fairly well controlled. 10/09/2016 blood pressure looks good. 10/10/2016 blood pressures are well controlled. 10/11/2016 blood pressure reasonably controlled. Current Visit: Yes (4) History of lung cancer Status: Chronic Assessment and plan: Apparently had a right middle and lower lobes removed in [place] about 10 years ago. Family is not clear about the type of lung cancer. Patient was never a smoker. We need to get the details of this from [place]. 10/09/2016 we have obtained the details from [facility] indicating that she had a right lower lobectomy in 2010 for adenocarcinoma. It was 3 cm in diameter but was stage I. 10/11/2016 being followed by pulmonology in [place]. Current Visit: Yes Specialty Discharge - Follow Up or Referrals Follow up with: , PCP [Other] - 10/24/16 2:35 am ([facility] ) Eliot Mcmanus MD [Physician] - 11/06/16 1:30 pm
[2016-10-11] MEDS: ENOXAPARIN 40 MG/0.4 ML SYRINGE SUBCUT SCH (08:02)
[2016-10-11] MEDS: BUMETANIDE 1 MG TABLET PO SCH (08:02)
[2016-10-11] MEDS: ASPIRIN 325 MG TABLET PO SCH (08:02)
[2016-10-11] MEDS: PANTOPRAZOLE 40 MG TABLET PO SCH (08:03)
[2016-10-11] MEDS: LORATADINE 10 MG TABLET PO SCH (08:03)
[2016-10-11] MEDS: amLODIPine 2.5 MG TABLET PO SCH (08:03)
[2016-10-11] MEDS: EZETIMIBE 10 MG TABLET PO SCH (08:03)
[2016-10-11] MEDS: DOXYCYCLINE HYCLATE 100 MG CAPSULE PO SCH (08:03)
[2016-10-11] MEDS: LUBIPROSTONE 24 MCG CAPSULE PO SCH (08:03)
[2016-10-11] MEDS: GABAPENTIN 300 MG CAPSULE PO SCH (08:03)
[2016-10-11] MEDS: INSULIN LISPRO 100 UNIT/ML SUBCUT SCH (08:03)
[2016-10-11] MEDS: tiZANidine 4 MG TABLET PO SCH (08:03)
[2016-10-11] MEDS: INSULIN REGULAR 100 UNIT/ML SUBCUT SCH (08:04)
[2016-10-11] MEDS: BUDESONIDE/FORMOTEROL 160-4.5 INHALER 6 GM INH SCH (08:09)
[2016-10-11] MEDS ORDERED: predniSONE 20 MG TABLET PO SCH (09:00)
== END 2016-10-11 09:35 | disposition home or self-care (01) | DRG 203 ==
LOC: N.ED 21:53 → N.EDINP 23:13 → SUATTDRO 23:13 → N.5E 10-06 00:02
PROVIDERS: ADMIT Internal Medicine; ATTEND Pediatrics

== ENCOUNTER 2016-12-20 11:30 | Inpatient (IN) ==
--- NOTE | 2016-12-20 12:25 | EKG Report ---
Stationary ECG Study [facility] ER Test Date: 12/20/2016 11:54:56 AM Pat Name: JAXON TA Department: Room: Gender: F Department [employer]: : 1945 Requested by: Roel Gonsales Order Number: [id number] Reading MD: PERLA DAVALOS Intervals [place] Rate: 68 P: 88 SD: 180 QRS: 9 QRSD: 97 T: 245 QT: 398 QTc: 415 Interpretive Statements SINUS RHYTHM WITH PAC LEFT VENTRICULAR HYPERTROPHY WITH REPOLARIZATION ABNORMALITY Electronically Signed On 12-20-16 13:30:18 CDT by PERLA DAVALOS [email or web address]
--- NOTE | 2016-12-20 12:52 | XRay Report ---
XR chest 2V Indication: Cough. Shortness of breath. Comparison: Chest x-ray 10/05/2016. Technique: PA and lateral chest x-ray was performed. Findings: The heart size appears within normal limits. Pulmonary vasculature demonstrates no specific abnormality. Hilar structures demonstrate fairly symmetric appearance. The lungs appear clear. Bones and soft tissues demonstrate stable appearance of rib deformity involving the lateral aspect of the right sixth rib. Impression: 1. No active cardiopulmonary disease. The interval appearance of the chest is stable. 2. Deformity of the right rib cage is stable in appearance. 12/20/2016 12:48 PM PROCEDURE INTERPRETED AT [facility] DEPARTMENT OF RADIOLOGY Final Report Signed by: Dr. Nahid Saeed
[2016-12-20] MEDS ORDERED: ALBUTEROL/IPRATROPIUM 3 ML NEB RESP TX STA ×2 (13:16→15:14)
[2016-12-20] MEDS ORDERED: LEVOFLOXACIN INJ 500 MG in PREMIX 1 EACH IV STA (13:17)
[2016-12-20] MEDS ORDERED: methylPREDNISolone SOD SUC 125 MG/2 ML VIAL IV STA (13:17)
[2016-12-20 13:39] LABS: Basophils % 0.7 % (0.0-0.8); Eosinophils # 0.1 10*3/uL (0.0-0.87); Eosinophils % 1.2 % (0.00-10.9); Hematocrit 32.5 VOL% (35.7-47.0); Hemoglobin 10.8 GM/DL (12.0-16.0); Immature Granulocytes % 0.3 %; Immature Granulocytes Absolute 0.02 #; Lymphocytes # 2.3 10*3/uL (1.4-4.0); Lymphocytes % 38.9 % (21.3-54.2); Mean Corpuscular HGB Conc 33.2 GM/DL (32-36); Mean Corpuscular Hemoglobin 28 PG (27-34); Mean Platelet Volume 9.8 FL (9.6-12.0); Monocytes # 0.5 10*3/uL (0.11-0.8); Monocytes % 7.9 % (1.7-12.7); Neutrophils # 3.1 10*3/uL (1.4-7.4); Platelet Count 208 T/CUMM (130-400); Red Blood Count 3.87 MC/CUMM (3.8-5.5); Red Cell Distribution Width 14.3 % (9.3-17.3)
--- NOTE | 2016-12-20 14:05 | Emergency Department Note ---
Ryan Patten Hilary, am scribing for, and in the presence of, Roel Royal MD 13:07. Genny Patten Phillip K, MD, personally performed the services described in this documentation, ascribed by Talita Davis in my presence, and it is both accurate and complete 405 . Arrival - Arrival Chief Complaint: Shortness of Breath Stated Complaint: coughing ED Nursing Triage Note: cough and congestion onset x 1 week - SOB - pt was seen and treated at [place] on Saturday and started on doxycycline - pt is having audible wheezing at time of triage Mode of Arrival: Ambulatory Limitations: No Limitations Source: Patient, RN Notes Reviewed Time Seen by Provider: 12/20/16 12:18 - History of Present Illness HPI Narrative: Pt is a 71 y/o female presenting to the ED with c/o cough which onset a week ago. Pt states that she was treated in [place] last week, she does home breathing treatments, takes 10mg of Prednisone daily, and is on Doxycycline. She confirms cough, brown phlegm and a PMHx of asthma, lung CA and Bronchitis. Her last breathing treatment was 0900 this AM. No other complaints or problems stated in the ED. Onset (ago): week(s) Consistency: constant Severity: moderate Severity scale (1-10): 2 Date of Last Menstrual Period: hyster Allergies/Adverse Reactions: Allergies Allergy/AdvReac Type Severity Reaction Status Date / Time lisinopril Allergy ANAPHYLAXIS Verified 10/06/16 06:31 Home Medications: Home Medications Medication Instructions Recorded Confirmed Type Amlodipine Besylate 2.5 mg PO DAILY 10/06/16 12/20/16 History Aspirin 325 mg PO DAILY 10/06/16 12/20/16 History Cinnamon Bark [Cinnamon] 500 mg PO DAILY 10/06/16 12/20/16 History Ezetimibe [Zetia] 10 mg PO DAILY 10/06/16 12/20/16 History Fenofibrate [Tricor] 145 mg PO DAILY 10/06/16 12/20/16 History Fluticasone 50 Mcg Nasal [place] 1 sprays PO DAILY 10/06/16 12/20/16 History [Flonase Nasal [place]] Gabapentin 300 mg PO BID 10/06/16 12/20/16 History Loratadine Tab [Claritin Tab] 10 mg PO DAILY 10/06/16 12/20/16 History [place]-3S/Dha/Epa/Fish Oil [Fish 1 each PO DAILY 10/06/16 12/20/16 History Oil [place]-3 Softgel] Rosuvastatin Calcium 10 mg PO BEDTIME 10/06/16 12/20/16 History Tizanidine HCl 2 mg PO QOTHER DAY PRN 10/06/16 12/20/16 History Albuterol/Ipratropium Neb [Duoneb] 3 ml RESP TX RT Q6H #180 10/10/16 12/20/16 Rx Budesonide/Formoterol 160-4.5 2 puff INH BID #1 inhaler 10/10/16 12/20/16 Rx [Symbicort 160-4.5] Bumetanide Tab [Bumex Tab] 2 mg PO DAILY tablet 10/10/16 12/20/16 Rx Docusate Sodium Cap [Colace Cap] 100 mg PO BID PRN #0 capsule 10/10/16 12/20/16 Rx Doxycycline Hyclate Cap 100 mg PO BID #10 capsule 10/10/16 12/20/16 Rx [Vibramycin Cap] Polyethylene Glycol Powder 17 gm PO DAILY PRN #0 10/10/16 12/20/16 Rx [Miralax] predniSONE TAB [PredniSONE] 10 mg PO DAILY #0 10/10/16 12/20/16 Rx Insulin Aspart [NovoLOG] See Protocol SUBCUT DAILY PRN 12/20/16 12/20/16 History Insulin Detemir [Levemir] 70 unit SUBCUT QAM 12/20/16 12/20/16 History Review of System - Review of System 12 point system: reviewed and no additional remarkable complaints except as stated - Review of System Constitutional: Absent: fever Respiratory: Present: cough, respiratory distress, wheezing Medical,Surgical,& Family Hx - Medical History Cardio: History of: Hypertension HEENT: History of: HEENT Problems (reports ear surgery- name of surgery unknown) Endocrine: History of: Diabetes Mellitus (IDDM) Respiratory: History of: Asthma, Bronchitis, Lung Cancer - Surgical History Thoracic Surgeries: Surgical HX of;: Lobectomy (Mar 2010) HEENT Surgeries: Surgical HX of: Tonsilectomy & Adenoidectomy (tonsilectomy) Abdominal Surgeries: Surgical HX of: Hernia Repair Reproductive Surgeries: Surgical HX of;: Hysterectomy - Family History Family History: Reports;: Family Cancer, Family Diabetes, Family Heart Disease, Family Hypertension (mother, dad, brother, grandmother) - Social History Smoking Status: Never smoker Frequency of Alcohol Use: None Type of Drug Use: None Exam Vital Signs: Vital Signs Temperature 98.7 F 12/20/16 12:15 Pulse Rate 59 L 12/20/16 13:35 Respiratory Rate 17 12/20/16 13:35 Blood Pressure 115/62 12/20/16 13:30 O2 Sat by Pulse Oximetry 98 12/20/16 13:35 - General General appearance: alert, in distress (secondary to wheezing) - Head Head exam: Present: atraumatic, normocephalic - Eye Eye exam: Present: normal appearance, PERRL, EOMI - ENT ENT exam: Present: mucous membranes moist, TM's normal bilaterally. Absent: mucous membranes dry - Neck Neck exam: Present: full ROM, trachea midline. Absent: tenderness - Chest Chest inspection: Present: symmetric chest wall rise. Absent: tenderness - Respiratory Respiratory exam: Present: respiratory distress, wheezes (diffused expiratory and inspiratory wheezes in all lung byrne) - Cardiovascular Cardiovascular exam: Present: regular rate, normal rhythm, normal heart sounds. Absent: murmur, rubs, gallop - Abdominal Exam Abdominal exam: Present: soft, normal bowel sounds. Absent: distention, tenderness - Extremities Exam Extremities exam: Present: full ROM. Absent: tenderness - Back Exam Back exam: Present: full ROM. Absent: tenderness - Neurological Exam Neurological exam: Present: alert, oriented X3, CN II-XII intact. Absent: motor sensory deficit - Psychiatric Psychiatric exam: Present: normal affect, normal mood - Skin Skin exam: Present: warm, dry, intact, normal color. Absent: rash Results - Labs CBC & BMP: 12/20/16 13:17 12/20/16 13:25 Lab Results: I have reviewed the patients labs Labs: Laboratory Tests 12/20/16 13:17 WBC 6.0 RBC 3.87 Hgb 10.8 L Hct 32.5 L MCV 84.0 L Plt Count 208 Laboratory Tests 12/20/16 13:25 Sodium 142 Potassium 3.5 Chloride 106 Carbon Dioxide 28 BUN 18 Glucose 188 H Total Protein 6.7 - Diagnostic Findings Procedure: Chest x-ray: report reviewed by me (1. No active cardiopulmonary disease. The interval appearance of the chest is stable. 2. Deformity of the right rib cage is stable in appearance) Disposition Clinical Impression: Asthma with exacerbation, Bronchitis Case discussed with: patient, patient's family Disposition: Still a Patient Condition: Guarded Additional Instructions: Admit to the hospitalist
[2016-12-20 14:08] LABS: Alanine Aminotransferase 18 U/L (13-56); Albumin 3.7 G/DL (3.4-5.0); Alkaline Phosphatase 65 U/L (45-117); Aspartate Amino Transferase 15 U/L (0-37); Bilirubin,Total < 0.39 MG/DL (0.2-1.0); Blood Urea Nitrogen 18 MG/DL (7-18); Calcium 8.9 MG/DL (8.5-10.1); Glucose 188 MG/DL (74-106); Osmolality,Calculated 289.1 MOS/KG (273-304); Potassium 3.5 MMOL/L (3.5-5.1); Sodium 142 MMOL/L (136-145); Total Protein 6.7 G/DL (6.4-8.3)
[2016-12-20] MEDS ORDERED: LEVOFLOXACIN INJ 100 ML IV ONE (14:33)
[2016-12-20] MEDS ORDERED: methylPREDNISolone SOD SUC 125 MG/2 ML VIAL ONE (14:33)
--- NOTE | 2016-12-20 15:47 | Hospitalist History & Physical ---
<Carlos Bruno - Last Filed: 12/20/16 17:38> Assessment and Plan (1) Asthma with exacerbation Status: Acute Assessment and plan: Admit to med surg. Breathing treatments. Order steroids. IV antibiotic (Levaquin ) given in ED. Current Visit: Yes (2) Hypertension Status: Acute Assessment and plan: Pt's blood pressure stable Current Visit: No (3) History of lung cancer Status: Chronic Current Visit: No History of Present Illness Chief complaint: shortness of breath/cough History of present illness: Ms. Rich is a 71 year old black female with a history of htn, asthma, lung cancer, and bronchitis that presented to the ED today with complaints of shortness of breath and a productive cough. Pt. states that she has been having issues with breathing on and off since August and has been hospitalized twice since that time. Patient states that over the last week her symptoms have worsened. PtTushar was seen in a clinic in [place], [place] on Saturday for shortness of breath and the cough. She states she was treated with IV steroids, breathing treatments, and given a prescription for antibiotics. She states that she has been compliant with her meds and breathing treatments but to no avail. She presented to the ED for evaluation and treatment. During triage patient was noted to have audible wheezes. On examination patient was visibly short of breath. Supplemental O2 in place. Patient's case has been discussed with Dr. Kirk and patient will be admitted to the hospitalist service for further evaluation and treatment. Home Medications Medication Instructions Recorded Confirmed Type Amlodipine Besylate 2.5 mg PO DAILY PRN 10/06/16 12/20/16 History Aspirin 325 mg PO DAILY 10/06/16 12/20/16 History Cinnamon Bark [Cinnamon] 500 mg PO DAILY 10/06/16 12/20/16 History Ezetimibe [Zetia] 10 mg PO DAILY 10/06/16 12/20/16 History Fenofibrate [Tricor] 145 mg PO DAILY 10/06/16 12/20/16 History Fluticasone 50 Mcg Nasal [place] 1 sprays PO DAILY 10/06/16 12/20/16 History [Flonase Nasal [place]] Gabapentin 300 mg PO BID 10/06/16 12/20/16 History Loratadine Tab [Claritin Tab] 10 mg PO DAILY 10/06/16 12/20/16 History [place]-3S/Dha/Epa/Fish Oil [Fish 1 each PO DAILY 10/06/16 12/20/16 History Oil [place]-3 Softgel] Rosuvastatin Calcium 10 mg PO BEDTIME 10/06/16 12/20/16 History Tizanidine HCl 2 mg PO QOTHER DAY PRN 10/06/16 12/20/16 History Albuterol/Ipratropium Neb [Duoneb] 3 ml RESP TX RT Q6H #180 10/10/16 12/20/16 Rx Budesonide/Formoterol 160-4.5 2 puff INH BID #1 inhaler 10/10/16 12/20/16 Rx [Symbicort 160-4.5] Bumetanide Tab [Bumex Tab] 2 mg PO DAILY tablet 10/10/16 12/20/16 Rx Docusate Sodium Cap [Colace Cap] 100 mg PO BID PRN #0 capsule 10/10/16 12/20/16 Rx Doxycycline Hyclate Cap 100 mg PO BID #10 capsule 10/10/16 12/20/16 Rx [Vibramycin Cap] predniSONE TAB [PredniSONE] 10 mg PO DAILY #0 10/10/16 12/20/16 Rx Insulin Aspart [NovoLOG] See Protocol SUBCUT DAILY PRN 12/20/16 12/20/16 History Insulin Detemir [Levemir] 20 units SUBCUT QAM PRN 12/20/16 12/20/16 History Insulin Detemir [Levemir] 70 unit SUBCUT BEDTIME 12/20/16 12/20/16 History Insulin Regular, Human [NovoLIN R] See Protocol SUBCUT BID W/MEALS 12/20/1612/01 History Lubiprostone [Amitiza] 1 tablet PO BID 12/20/16 12/20/16 History Allergies Allergy/AdvReac Type Severity Reaction Status Date / Time lisinopril Allergy ANAPHYLAXIS Verified 12/20/16 16:52 Medical,Surgical,& Family Hx - Medical History Cardio: History of: Hypertension HEENT: History of: HEENT Problems (reports ear surgery- name of surgery unknown) Endocrine: History of: Diabetes Mellitus (IDDM) Respiratory: History of: Asthma, Bronchitis, Lung Cancer - Surgical History Thoracic Surgeries: Surgical HX of;: Lobectomy (Mar 2010) HEENT Surgeries: Surgical HX of: Tonsilectomy & Adenoidectomy (tonsilectomy) Abdominal Surgeries: Surgical HX of: Hernia Repair Reproductive Surgeries: Surgical HX of;: Hysterectomy - Family History Family History: Reports;: Family Cancer, Family Diabetes, Family Heart Disease, Family Hypertension (mother, dad, brother, grandmother) - Social History Smoking Status: Never smoker Frequency of Alcohol Use: None Type of Drug Use: None Marital Status: Single Lives With:: Children Functional capacity: independent ambulation - Constitutional Constitutional: Present: fatigue, fever(s), weakness. Absent: chills - EENT Eyes: Present: loss of vision, requires corrective lense Ears: Absent: decreased hearing Nose, mouth and throat: Absent: headache(s) - Cardiovascular Cardiovascular: Present: dyspnea. Absent: chest pain at rest - Respiratory Respiratory: Present: cough (productive (brown phelgm)), dyspnea - Gastrointestinal Gastrointestinal: Absent: abdominal pain, nausea, vomiting - Genitourinary Genitourinary: Absent: difficulty urinating - Neurological Neurological: Absent: confusion, dizziness Exam - Constitutional Vitals: Period Temp Pulse Resp BP Sys/[place] Pulse Ox Last 24 Hr 98.7 F-98.7 F 59-71 17-20 115-160/60-80 95-98 General appearance: no acute distress, over weight - Head Head exam: Present: normal inspection, normocephalic - Eye Eye exam: Present: EOMI. Absent: scleral icterus Pupils: Present: CHRIS. Absent: fixed - Neck Neck exam: Present: normal inspection - Respiratory Respiratory exam: Present: wheezes - Cardiovascular Cardiovascular exam: Present: regular rate and rhythm - GI/Abdominal GI/Abdominal exam: Present: normal bowel sounds, soft. Absent: tenderness - Extremities Exam Extremities exam: Present: normal capillary refill, full ROM, edema (trace bilateral ankle/foot) - Neurological Exam Neurological exam: Present: alert, oriented X3 - Psychiatric Psychiatric exam: Present: normal affect, normal mood - Skin Skin exam: Present: normal color, warm, dry Results - Labs CBC & BMP: 12/20/16 13:17 12/20/16 13:25 Lab Results: I have reviewed the past 24 hour labs <Karl Kirk - Last Filed: 12/20/16 17:52> History of Present Illness History of present illness: Patient seen and examined independently of [employer] Bruno, agree with history, assessment and plan as documented. 71 y/o AAF being admitted with asthma exacerbation. Recent admission in september with same. CXR without acute process, labs wnl. Followed by Dr. Mcmanus. Karol, steroids, abx for now. Consult Dr. Mcmanus. Exam - Constitutional Vitals: Period Temp Pulse Resp BP Sys/[place] Pulse Ox Last 24 Hr 98.1 F-99.3 F 59-72 17-23 115-160/60-80 95-100 Results - Labs CBC & BMP: 12/20/16 13:17 12/20/16 13:25
[2016-12-20] MEDS ORDERED: ACETAMINOPHEN 325 MG TABLET PO PRN (16:29)
[2016-12-20] MEDS ORDERED: ALBUTEROL 2.5 MG/3 ML NEB RESP TX PRN (16:29)
[2016-12-20] MEDS: FLUTICASONE/SALMETEROL 500-50 DISKUS 14 DOSE INH SCH (20:11)
[2016-12-20] MEDS: BUDESONIDE/FORMOTEROL 160-4.5 INHALER 6 GM INH SCH (20:11)
[2016-12-20] MEDS: methylPREDNISolone SOD SUC 125 MG/2 ML VIAL IV SCH (20:12)
[2016-12-20] MEDS: ALBUTEROL/IPRATROPIUM 3 ML NEB RESP TX SCH ×2 (20:29→23:54)
[2016-12-21] MEDS: methylPREDNISolone SOD SUC 125 MG/2 ML VIAL IV SCH ×2 (03:44→08:38)
[2016-12-21] MEDS: ALBUTEROL/IPRATROPIUM 3 ML NEB RESP TX SCH ×6 (03:45→23:33)
[2016-12-21 06:36] LABS: Basophils % 0.1 % (0.0-0.8); Hematocrit 35.3 VOL% (35.7-47.0); Hemoglobin 11.3 GM/DL (12.0-16.0); Immature Granulocytes % 1.2 %; Immature Granulocytes Absolute 0.09 #; Lymphocytes % 13.3 % (21.3-54.2); Mean Corpuscular Hemoglobin 27 PG (27-34); Mean Platelet Volume 10.7 FL (9.6-12.0); Monocytes # 0.2 10*3/uL (0.11-0.8); Neutrophils # 6.3 10*3/uL (1.4-7.4); Neutrophils % 83.4 % (38.7-73.9); Platelet Count 241 T/CUMM (130-400); Red Cell Distribution Width 14.3 % (9.3-17.3); White Blood Count 7.5 T/CUMM (4-12)
[2016-12-21 07:20] LABS: Calcium 9.6 MG/DL (8.5-10.1); Magnesium 1.6 MG/DL (1.8-2.4); Osmolality,Calculated 296.7 MOS/KG (273-304); Potassium 3.8 MMOL/L (3.5-5.1); Risk Ratio 2.83; Thyroid Stimulating Hormone 0.321 uIU/ml (0.358-3.74); VLDL CHOLESTEROL 13.2 MG/DL
[2016-12-21] MEDS ORDERED: DEXTROSE 50% 25 GM/50 ML VIAL IV PRN ×2 (07:28→15:39)
[2016-12-21] MEDS ORDERED: GLUCAGON 1 MG VIAL IM PRN ×2 (07:28→15:39)
[2016-12-21] MEDS ORDERED: INSULIN GLARGINE 100 UNIT/ML SUBCUT PRN ×2 (07:29→15:31)
[2016-12-21] MEDS: LORATADINE 10 MG TABLET PO SCH (08:37)
[2016-12-21] MEDS: PANTOPRAZOLE 40 MG TABLET PO SCH (08:37)
[2016-12-21] MEDS: EZETIMIBE 10 MG TABLET PO SCH (08:37)
[2016-12-21] MEDS: BUMETANIDE 1 MG TABLET PO SCH (08:37)
[2016-12-21] MEDS: LUBIPROSTONE 24 MCG CAPSULE PO SCH ×2 (08:37→21:27)
[2016-12-21] MEDS: amLODIPine 2.5 MG TABLET PO PRN (08:37)
[2016-12-21] MEDS: ASPIRIN 325 MG TABLET PO SCH (08:37)
[2016-12-21] MEDS: GABAPENTIN 300 MG CAPSULE PO SCH ×2 (08:37→21:27)
[2016-12-21] MEDS: FLUTICASONE/SALMETEROL 500-50 DISKUS 14 DOSE INH SCH ×2 (08:40→21:28)
[2016-12-21] MEDS: BUDESONIDE/FORMOTEROL 160-4.5 INHALER 6 GM INH SCH ×2 (08:40→21:27)
[2016-12-21] MEDS: INSULIN REGULAR 100 UNIT/ML SUBCUT SCH ×4 (08:41→21:25)
--- NOTE | 2016-12-21 08:50 | Pulmonology Consult Note ---
Assessment and Plan (1) Asthma exacerbation Status: Acute Assessment and plan: Agree with corticosteroids bronchodilators and empiric antibiotics. Would go light on the steroids based on her diabetes. She needs a little bit more for controller medications. Will add Spiriva. 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 No signs of recurrence on follow-up as per records from [place]. Will allow them to continue following there. I see no reason to get a CT scan here without the ones that are to compare. She is due for another CT later this year and mobile. She was not sure exactly when. She has never been a smoker Current Visit: No (3) Diabetes Status: Acute Assessment and plan: Sliding scale insulin. Blood sugar this morning was over 400. She is very sensitive to steroids. Reduce steroids Current Visit: No Qualifiers: Diabetes mellitus complication status: with hyperglycemia (4) Bronchitis Status: Acute Assessment and plan: Antibiotics and bronchodilators. Low-dose steroids. Current Visit: Yes (5) Moniliasis of mouth Status: Acute Assessment and plan: We will put on Diflucan. Discussed with patient means of preventing this while on inhaled steroids. Either gargling with mouthwash or walking her tongue with water, After each dose. Current Visit: Yes History of Present Illness Chief complaint: Cough congestion shortness of breath History of present illness: Ms. Rich is a 71 year old female who has asthma. She is a non-smoker and never has smoked. She has had a previous right lower lobectomy for adenocarcinoma. She is followed by Dr. Jaramillo who is a registered nurse step down in [place]. She has had follow-up CT scans for a small nodule in her left long and has been told that there is no change in this over a three-year period of time. She is set up for another CT later this year down there. She had the onset of cough and congestion about a week ago. She saw her physician in [place] and was advised to be admitted. She declined admission, and took oral medication for exacerbation of asthma. She has not gotten any better. She has some soreness in her chest but no grayson chest pain. She is not having any fever now but felt like she had fever a week ago. She was coughing up some thick brown sputum which has improved. She is currently on Symbicort at home for a controller medication. This is the second exacerbation she has had in the last 3 months. Probably needs a step up in her controller meds. Home Medications Medication Instructions Recorded Confirmed Type Amlodipine Besylate 2.5 mg PO DAILY PRN 10/06/16 12/20/16 History Aspirin 325 mg PO DAILY 10/06/16 12/20/16 History Cinnamon Bark [Cinnamon] 500 mg PO DAILY 10/06/16 12/20/16 History Ezetimibe [Zetia] 10 mg PO DAILY 10/06/16 12/20/16 History Fenofibrate [Tricor] 145 mg PO DAILY 10/06/16 12/20/16 History Fluticasone 50 Mcg Nasal [place] 1 sprays PO DAILY 10/06/16 12/20/16 History [Flonase Nasal [place]] Gabapentin 300 mg PO BID 10/06/16 12/20/16 History Loratadine Tab [Claritin Tab] 10 mg PO DAILY 10/06/16 12/20/16 History [place]-3S/Dha/Epa/Fish Oil [Fish 1 each PO DAILY 10/06/16 12/20/16 History Oil [place]-3 Softgel] Rosuvastatin Calcium 10 mg PO BEDTIME 10/06/16 12/20/16 History Tizanidine HCl 2 mg PO QOTHER DAY PRN 10/06/16 12/20/16 History Albuterol/Ipratropium Neb [Duoneb] 3 ml RESP TX RT Q6H #180 10/10/16 12/20/16 Rx Budesonide/Formoterol 160-4.5 2 puff INH BID #1 inhaler 10/10/16 12/20/16 Rx [Symbicort 160-4.5] Bumetanide Tab [Bumex Tab] 2 mg PO DAILY tablet 10/10/16 12/20/16 Rx Docusate Sodium Cap [Colace Cap] 100 mg PO BID PRN #0 capsule 10/10/16 12/20/16 Rx Doxycycline Hyclate Cap 100 mg PO BID #10 capsule 10/10/16 12/20/16 Rx [Vibramycin Cap] predniSONE TAB [PredniSONE] 10 mg PO DAILY #0 10/10/16 12/20/16 Rx Insulin Aspart [NovoLOG] See Protocol SUBCUT DAILY PRN 12/20/16 12/20/16 History Insulin Detemir [Levemir] 20 units SUBCUT QAM PRN 12/20/16 12/20/16 History Insulin Detemir [Levemir] 70 unit SUBCUT BEDTIME 12/20/16 12/20/16 History Insulin Regular, Human [NovoLIN R] See Protocol SUBCUT BID W/MEALS 12/20/1612/01 History Lubiprostone [Amitiza] 1 tablet PO BID 12/20/16 12/20/16 History Allergies Allergy/AdvReac Type Severity Reaction Status Date / Time lisinopril Allergy ANAPHYLAXIS Verified 12/20/16 16:52 12 point system: reviewed and no additional remarkable complaints except as stated - Constitutional Constitutional: Present: fever(s) - EENT Nose, mouth and throat: Present: hoarseness - Cardiovascular Cardiovascular: Present: dyspnea, dyspnea on exertion - Respiratory Respiratory: Present: cough, dyspnea, dyspnea on exertion, wheezing, change in phlegm color Exam (Pulmonay) H&P - Constitutional Vitals: Period Temp Pulse Resp BP Sys/[place] Pulse Ox Last 24 Hr 97.5 F-99.3 F 59-78 17-23 115-160/57-80 93-100 Exam: Patient is alert and oriented. Appears a little anxious and dyspneic. Vital signs normal. Oxygen saturation 100% on room air. Pupils react to light. Throat is clear except she has a white coating on the posterior tongue. Neck supple no bruits. Chest reveals prolonged expiratory phase mild expiratory wheezes. Heart normal rate rhythm no murmurs. Abdomen soft nontender no masses. Extremities no clubbing cyanosis or edema. Calves nontender Medical,Surgical,& Family Hx - Medical History Cardio: History of: Hypertension HEENT: History of: HEENT Problems (reports ear surgery- name of surgery unknown) Endocrine: History of: Diabetes Mellitus (IDDM) Respiratory: History of: Asthma, Bronchitis, Lung Cancer - Surgical History Thoracic Surgeries: Surgical HX of;: Lobectomy (Mar 2010) HEENT Surgeries: Surgical HX of: Tonsilectomy & Adenoidectomy (tonsilectomy) Abdominal Surgeries: Surgical HX of: Hernia Repair Reproductive Surgeries: Surgical HX of;: Hysterectomy - Family History Family History: Reports;: Family Cancer, Family Diabetes, Family Heart Disease, Family Hypertension (mother, dad, brother, grandmother) - Social History Smoking Status: Never smoker Frequency of Alcohol Use: None Type of Drug Use: None Results - Labs CBC & BMP: 12/21/16 05:15 12/21/16 05:15 Lab Results: I have reviewed the past 24 hour labs - Diagnostic Findings Procedure: Chest x-ray: image reviewed by me (Some scarring at right base with more right hilum involved. No change from previous x-rays. No acute infiltrates.)
[2016-12-21] MEDS: FLUCONAZOLE 100 MG TABLET PO SCH (10:43)
--- NOTE | 2016-12-21 15:35 | Hospitalist Progress Note ---
Assessment and Plan (1) Diabetes Status: Acute Assessment and plan: Takes Levemir BID outpatient, she takes 40 units bid Very uncontrolled on steroids, she did not get her nightly dose of levemir Restarted Lantus BID SSI increased to regular high Will give an extra push of regular 10 Her A1C is elevated at 11, so she is also uncontrolled regularly on top of the steroids Current Visit: No Qualifiers: Diabetes mellitus complication status: with hyperglycemia (2) Asthma with exacerbation Status: Acute Assessment and plan: Pulmonary following duonebs, steroids and levaquin Steroids decreased today Current Visit: Yes Hospitalist: Subjective Interval history: No acute events overnight. Seen today sitting in chair on room air. Reports that she feels better today, cough and sob come and go. Exam - Constitutional Vitals: Period Temp Pulse Resp BP Sys/[place] Pulse Ox Last 24 Hr 97.2 F-99.3 F 61-78 18-23 119-147/57-75 93-100 General appearance: over weight - Head Head exam: Present: normocephalic, atraumatic - Eye Eye exam: Present: EOMI Pupils: Present: CHRIS - ENT ENT exam: Present: normal exam - Neck Neck exam: Present: normal inspection - Respiratory Respiratory exam: Present: clear to auscultation bilaterally. Absent: rhonchi, wheezes - Cardiovascular Cardiovascular exam: Present: regular rate and rhythm - GI/Abdominal GI/Abdominal exam: Present: normal bowel sounds, soft. Absent: tenderness, rebound - Extremities Exam Extremities exam: Present: normal inspection - Back Exam Back exam: Present: normal inspection - Neurological Exam Neurological exam: Present: alert, oriented X3 - Psychiatric Psychiatric exam: Present: normal affect, normal mood - Skin Skin exam: Present: warm, intact Results - Labs CBC & BMP: 12/21/16 05:15 12/21/16 11:14
[2016-12-21] MEDS ORDERED: INSULIN REGULAR 100 UNIT/ML SUBCUT ONE (15:38)
[2016-12-21] MEDS ORDERED: LEVOFLOXACIN INJ 500 MG in PREMIX 1 EACH IV SCH (17:30)
[2016-12-21] MEDS ORDERED: methylPREDNISolone SOD SUC 125 MG/2 ML VIAL IV SCH (20:00)
[2016-12-21] MEDS ORDERED: INSULIN GLARGINE 100 UNIT/ML SUBCUT SCH (21:00)
[2016-12-21] MEDS: ROSUVASTATIN 10 MG TABLET PO SCH (21:27)
[2016-12-21] MEDS: MONTELUKAST 10 MG TABLET PO SCH (21:27)
[2016-12-22] MEDS: ALBUTEROL/IPRATROPIUM 3 ML NEB RESP TX SCH ×4 (03:17→19:01)
[2016-12-22 06:30] LABS: Basophils % 0.1 % (0.0-0.8); Hematocrit 32.7 VOL% (35.7-47.0); Hemoglobin 10.8 GM/DL (12.0-16.0); Immature Granulocytes % 1.9 %; Lymphocytes # 0.9 10*3/uL (1.4-4.0); Mean Corpuscular Hemoglobin 27 PG (27-34); Mean Corpuscular Volume 82.6 FL (87-102); Mean Platelet Volume 10.2 FL (9.6-12.0); Monocytes # 0.7 10*3/uL (0.11-0.8); Monocytes % 6.6 % (1.7-12.7); Neutrophils # 8.7 10*3/uL (1.4-7.4); Neutrophils % 82.4 % (38.7-73.9); Platelet Count 217 T/CUMM (130-400); Red Blood Count 3.96 MC/CUMM (3.8-5.5); Red Cell Distribution Width 14.3 % (9.3-17.3); White Blood Count 10.5 T/CUMM (4-12)
[2016-12-22 07:19] LABS: Calcium 9.1 MG/DL (8.5-10.1); Magnesium 1.8 MG/DL (1.8-2.4); Osmolality,Calculated 297.4 MOS/KG (273-304); Potassium 3.5 MMOL/L (3.5-5.1)
[2016-12-22] MEDS: FLUCONAZOLE 100 MG TABLET PO SCH (08:56)
[2016-12-22] MEDS: LORATADINE 10 MG TABLET PO SCH (08:56)
[2016-12-22] MEDS: ASPIRIN 325 MG TABLET PO SCH (08:56)
[2016-12-22] MEDS: GABAPENTIN 300 MG CAPSULE PO SCH ×2 (08:56→20:30)
[2016-12-22] MEDS: BUMETANIDE 1 MG TABLET PO SCH (08:56)
[2016-12-22] MEDS: LUBIPROSTONE 24 MCG CAPSULE PO SCH ×2 (08:56→20:30)
[2016-12-22] MEDS: EZETIMIBE 10 MG TABLET PO SCH (08:56)
[2016-12-22] MEDS: amLODIPine 2.5 MG TABLET PO PRN (08:56)
[2016-12-22] MEDS: BUDESONIDE/FORMOTEROL 160-4.5 INHALER 6 GM INH SCH ×2 (08:57→20:31)
[2016-12-22] MEDS: PANTOPRAZOLE 40 MG TABLET PO SCH (08:57)
[2016-12-22] MEDS: FLUTICASONE/SALMETEROL 500-50 DISKUS 14 DOSE INH SCH (08:57)
[2016-12-22] MEDS: INSULIN REGULAR 100 UNIT/ML SUBCUT SCH ×4 (08:58→20:29)
[2016-12-22] MEDS: methylPREDNISolone SOD SUC 40 MG/1 ML VIAL IV SCH ×2 (08:58→20:32)
[2016-12-22] MEDS ORDERED: NON-FORMULARY MEDICATION INH SCH (09:00)
[2016-12-22] MEDS ORDERED: INSULIN GLARGINE 100 UNIT/ML SUBCUT SCH ×3 (09:00→14:37)
[2016-12-22] MEDS: guaiFENesin 200 MG/10 ML UDCUP PO PRN ×2 (09:05→20:36)
--- NOTE | 2016-12-22 14:34 | Pulmonology Progress Note ---
Pulmonary - PN: Subj Interval history: Patient admitted for asthma exacerbation, just had breathing treatment when I examined her and was having a lot of coughing. Reports that cough medicine earlier in the day helped. Also has questions about new inhaler, is afraid she will not be able to afford it after discharge Exam (Progress Note) - Constitutional Vitals: Period Temp Pulse Resp BP Sys/[place] Pulse Ox Last 24 Hr 97.2 F-98.0 F 58-90 17-20 110-120/52-73 92-100 General appearance: mild distress, over weight - Respiratory Respiratory exam: Present: wheezes - Cardiovascular Cardiovascular exam: Present: regular rate and rhythm Results - Labs CBC & BMP: 12/22/16 06:12 12/22/16 06:12 Lab Results: I have reviewed the past 24 hour labs - Diagnostic Findings Procedure: Chest x-ray: image reviewed by me, report reviewed by me (I reviewed the image and report from 20 december, no obvious infiltrate) Assessment and Plan (1) Asthma exacerbation Status: Acute Assessment and plan: Patient with asthma exacerbation, clinically she thinks she is improving Plan: - Will change duonebs to q 6 - Changing Levaquin to Doxy as FQ can contribute to glycemic swings, and patient is already having a hard time with this - Does not need to be on 2 ICS/LABAs, will stop Advair as she is on Symbicort at home. -Continue IV steroids for another 24 hours, will switch to prednisone tomorrow - Neb in question is Spiriva respimate, will see if handihaler is cheaper, however no clear indication for LAMA in asthma, so may be able to avoid after discharge Current Visit: No
--- NOTE | 2016-12-22 14:42 | Hospitalist Progress Note ---
Assessment and Plan (1) Diabetes Status: Acute Assessment and plan: Takes Levemir BID outpatient, she takes 40 units bid Very uncontrolled on steroids, she did not get her nightly dose of levemir Restarted Lantus BID SSI increased to regular high Will give an extra push of regular 10 Her A1C is elevated at 11, so she is also uncontrolled regularly on top of the steroids Current Visit: No Qualifiers: Diabetes mellitus complication status: with hyperglycemia (2) Asthma with exacerbation Status: Acute Assessment and plan: Pulmonary following duonebs, steroids and levaquin Steroids decreased today Current Visit: Yes Hospitalist: Subjective Interval history: No acute events overnight. She thinks that she is doing better. Still very short of breath when seen after walking from the restroom. Exam - Constitutional Vitals: Period Temp Pulse Resp BP Sys/Livingston Pulse Ox Last 24 Hr 97.2 F-98.0 F 58-90 17-20 110-120/52-73 92-100 General appearance: over weight - Head Head exam: Present: normocephalic, atraumatic - Eye Eye exam: Present: EOMI Pupils: Present: CHRIS - ENT ENT exam: Present: normal exam - Neck Neck exam: Present: normal inspection - Respiratory Respiratory exam: Present: wheezes. Absent: rhonchi - Cardiovascular Cardiovascular exam: Present: regular rate and rhythm - GI/Abdominal GI/Abdominal exam: Present: normal bowel sounds, soft. Absent: tenderness, rebound - Extremities Exam Extremities exam: Present: normal inspection - Back Exam Back exam: Present: normal inspection - Neurological Exam Neurological exam: Present: alert, oriented X3 - Psychiatric Psychiatric exam: Present: normal affect, normal mood - Skin Skin exam: Present: warm, intact Results - Labs CBC & BMP: 12/22/16 06:12 12/22/16 06:12
[2016-12-22] MEDS: ROSUVASTATIN 10 MG TABLET PO SCH (20:30)
[2016-12-22] MEDS: MONTELUKAST 10 MG TABLET PO SCH (20:30)
[2016-12-22] MEDS: DOXYCYCLINE HYCLATE 100 MG CAPSULE PO SCH (21:57)
[2016-12-23] MEDS: ALBUTEROL/IPRATROPIUM 3 ML NEB RESP TX SCH ×4 (00:25→19:18)
[2016-12-23 07:05] LABS: Calcium 8.9 MG/DL (8.5-10.1); Osmolality,Calculated 296.3 MOS/KG (273-304)
[2016-12-23 07:24] LABS: Basophils % 0.1 % (0.0-0.8); Hematocrit 33.1 VOL% (35.7-47.0); Hemoglobin 10.9 GM/DL (12.0-16.0); Immature Granulocytes % 0.9 %; Immature Granulocytes Absolute 0.08 #; Lymphocytes # 1.5 10*3/uL (1.4-4.0); Lymphocytes % 17.2 % (21.3-54.2); Mean Corpuscular HGB Conc 32.9 GM/DL (32-36); Mean Corpuscular Hemoglobin 27 PG (27-34); Mean Corpuscular Volume 82.8 FL (87-102); Mean Platelet Volume 9.9 FL (9.6-12.0); Monocytes # 0.5 10*3/uL (0.11-0.8); Monocytes % 6.3 % (1.7-12.7); Neutrophils # 6.4 10*3/uL (1.4-7.4); Neutrophils % 75.5 % (38.7-73.9); Platelet Count 201 T/CUMM (130-400); Red Cell Distribution Width 14.5 % (9.3-17.3); White Blood Count 8.4 T/CUMM (4-12)
[2016-12-23] MEDS: EZETIMIBE 10 MG TABLET PO SCH (08:54)
[2016-12-23] MEDS: LUBIPROSTONE 24 MCG CAPSULE PO SCH ×2 (08:54→22:07)
[2016-12-23] MEDS: DOXYCYCLINE HYCLATE 100 MG CAPSULE PO SCH ×2 (08:54→22:07)
[2016-12-23] MEDS: GABAPENTIN 300 MG CAPSULE PO SCH ×2 (08:54→22:07)
[2016-12-23] MEDS: ASPIRIN 325 MG TABLET PO SCH (08:54)
[2016-12-23] MEDS: BUMETANIDE 1 MG TABLET PO SCH (08:54)
[2016-12-23] MEDS: INSULIN REGULAR 100 UNIT/ML SUBCUT SCH ×4 (08:55→22:06)
[2016-12-23] MEDS: FLUCONAZOLE 100 MG TABLET PO SCH (08:55)
[2016-12-23] MEDS: PANTOPRAZOLE 40 MG TABLET PO SCH (08:55)
[2016-12-23] MEDS: amLODIPine 2.5 MG TABLET PO PRN (08:55)
[2016-12-23] MEDS: LORATADINE 10 MG TABLET PO SCH (08:55)
[2016-12-23] MEDS: methylPREDNISolone SOD SUC 40 MG/1 ML VIAL IV SCH ×2 (08:55→22:12)
--- NOTE | 2016-12-23 08:56 | Pulmonology Progress Note ---
Pulmonary - PN: Subj Interval history: Patient admitted for asthma exacerbation, had a lot of coughing yesterday. She thinks so far this is a little better today. Feeling better with supplemental oxygen Exam (Progress Note) - Constitutional Vitals: Period Temp Pulse Resp BP Sys/[place] Pulse Ox Last 24 Hr 97.1 F-97.9 F 51-90 17-20 120-132/58-69 93-99 General appearance: morbidly obese - Head Head exam: Present: normal inspection - Respiratory Respiratory exam: Present: clear to auscultation bilaterally - Cardiovascular Cardiovascular exam: Present: regular rate and rhythm Results - Labs CBC & BMP: 12/23/16 07:14 12/23/16 06:09 Lab Results: I have reviewed the past 24 hour labs Assessment and Plan (1) Asthma exacerbation Status: Acute Assessment and plan: Patient with asthma exacerbation, clinically she thinks she is improving. will wait 24 hours on current regimen before making further changes. Dr Mcmanus to resume care tomorrow Current Visit: No
[2016-12-23] MEDS: BUDESONIDE/FORMOTEROL 160-4.5 INHALER 6 GM INH SCH ×2 (08:59→22:07)
--- NOTE | 2016-12-23 13:20 | Hospitalist Progress Note ---
Assessment and Plan (1) Diabetes Status: Acute Assessment and plan: Takes Levemir BID outpatient, she takes 40 units bid Restarted Lantus BID, increased today SSI Her A1C is elevated at 11, so she is also uncontrolled regularly on top of the steroids Current Visit: No Qualifiers: Diabetes mellitus complication status: with hyperglycemia (2) Asthma with exacerbation Status: Acute Assessment and plan: Pulmonary following duonebs, steroids and levaquin Levaquin switched to doxycycline today Current Visit: Yes Hospitalist: Subjective Interval history: No acute events overnight. Slowly getting better. Cough is better. Exam - Constitutional Vitals: Period Temp Pulse Resp BP Sys/[place] Pulse Ox Last 24 Hr 97.1 F-97.3 F 51-81 17-20 125-133/61-70 93-99 General appearance: over weight - Head Head exam: Present: normocephalic, atraumatic - Eye Eye exam: Present: EOMI Pupils: Present: CHRIS - ENT ENT exam: Present: normal exam - Neck Neck exam: Present: normal inspection - Respiratory Respiratory exam: Present: clear to auscultation bilaterally. Absent: rhonchi, wheezes - Cardiovascular Cardiovascular exam: Present: regular rate and rhythm - GI/Abdominal GI/Abdominal exam: Present: normal bowel sounds, soft. Absent: tenderness, rebound - Extremities Exam Extremities exam: Present: normal inspection - Back Exam Back exam: Present: normal inspection - Neurological Exam Neurological exam: Present: alert, oriented X3 - Psychiatric Psychiatric exam: Present: normal affect, normal mood - Skin Skin exam: Present: warm, intact Results - Labs CBC & BMP: 12/23/16 07:14 12/23/16 06:09
[2016-12-23] MEDS: INSULIN GLARGINE 100 UNIT/ML SUBCUT SCH (22:06)
[2016-12-23] MEDS: guaiFENesin 200 MG/10 ML UDCUP PO PRN (22:07)
[2016-12-23] MEDS: ROSUVASTATIN 10 MG TABLET PO SCH (22:07)
[2016-12-23] MEDS: MONTELUKAST 10 MG TABLET PO SCH (22:07)
[2016-12-24] MEDS: ALBUTEROL/IPRATROPIUM 3 ML NEB RESP TX SCH ×4 (00:50→19:45)
[2016-12-24] MEDS: guaiFENesin 200 MG/10 ML UDCUP PO PRN (05:14)
[2016-12-24 05:47] LABS: Hematocrit 38.6 VOL% (35.7-47.0); Hemoglobin 12.3 GM/DL (12.0-16.0); Immature Granulocytes % 1.1 %; Lymphocytes # 1.6 10*3/uL (1.4-4.0); Lymphocytes % 17.2 % (21.3-54.2); Mean Corpuscular HGB Conc 31.9 GM/DL (32-36); Mean Corpuscular Hemoglobin 27 PG (27-34); Mean Platelet Volume 10.1 FL (9.6-12.0); Monocytes # 0.6 10*3/uL (0.11-0.8); Monocytes % 6.2 % (1.7-12.7); Neutrophils % 75.5 % (38.7-73.9); Platelet Count 218 T/CUMM (130-400); Red Blood Count 4.54 MC/CUMM (3.8-5.5); Red Cell Distribution Width 14.3 % (9.3-17.3); White Blood Count 9.3 T/CUMM (4-12)
--- NOTE | 2016-12-24 09:06 | Pulmonology Progress Note ---
Pulmonary - PN: Subj Interval history: 71-year-old lady with asthma exacerbation and acute bronchitis. Clearly improving. Her blood sugars are running too high. Will reduce steroids a little further. Probably could go home on oral medications tomorrow. Exam (Progress Note) - Constitutional Vitals: Period Temp Pulse Resp BP Sys/Livingston Pulse Ox Last 24 Hr 97.3 F-98.1 F 50-94 18-20 111-133/58-71 96-100 Exam: Patient is alert and oriented. Vital signs normal. Pupils react to light. Throat is clear. Neck supple no bruits. Chest shows prolonged expiratory phase but no wheezes. Heart normal rate and rhythm no murmurs. Abdomen soft nontender no masses. Extremities no clubbing cyanosis or edema. Calves nontender Results - Labs CBC & BMP: 12/24/16 05:10 12/23/16 06:09 Lab Results: I have reviewed the past 24 hour labs Assessment and Plan (1) Asthma exacerbation Status: Acute Assessment and plan: Agree with corticosteroids bronchodilators and empiric antibiotics. Would go light on the steroids based on her diabetes. She needs a little bit more for controller medications. Will add Spiriva. 12/24/16 much improved. Taper steroids further. Probably home with oral medications tomorrow. She will need to stay on Symbicort and we have added Spiriva. Also on Singulair. 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 No signs of recurrence on follow-up as per records from [place]. Will allow them to continue following there. I see no reason to get a CT scan here without the ones that are to compare. She is due for another CT later this year and [place]. She was not sure exactly when. She has never been a smoker 12/24/2016 felt to be in remission. Being followed in [place]. Will not order any CTs here. Current Visit: No (3) Diabetes Status: Acute Assessment and plan: Sliding scale insulin. Blood sugar this morning was over 400. She is very sensitive to steroids. Reduce steroids 12/24/2016 blood sugars remain high. Tapering steroids. Current Visit: No Qualifiers: Diabetes mellitus complication status: with hyperglycemia (4) Bronchitis Status: Acute Assessment and plan: Antibiotics and bronchodilators. Low-dose steroids. 12/24/2016 still coughing but not producing sputum. Dyspnea is better. Current Visit: Yes (5) Moniliasis of mouth Status: Acute Assessment and plan: We will put on Diflucan. Discussed with patient means of preventing this while on inhaled steroids. Either gargling with mouthwash or walking her tongue with water, After each dose. 12/24/2016 this is better after Diflucan. Current Visit: Yes
[2016-12-24] MEDS: INSULIN REGULAR 100 UNIT/ML SUBCUT SCH ×4 (09:41→22:12)
[2016-12-24] MEDS: methylPREDNISolone SOD SUC 40 MG/1 ML VIAL IV SCH ×2 (09:42→11:57)
[2016-12-24] MEDS: LINACLOTIDE 145 MCG CAPSULE PO SCH (09:42)
[2016-12-24] MEDS: PANTOPRAZOLE 40 MG TABLET PO SCH (09:42)
[2016-12-24] MEDS: EZETIMIBE 10 MG TABLET PO SCH (09:42)
[2016-12-24] MEDS: INSULIN GLARGINE 100 UNIT/ML SUBCUT SCH ×2 (09:42→21:14)
[2016-12-24] MEDS: ASPIRIN 325 MG TABLET PO SCH (09:43)
[2016-12-24] MEDS: BUMETANIDE 1 MG TABLET PO SCH (09:43)
[2016-12-24] MEDS: BUDESONIDE/FORMOTEROL 160-4.5 INHALER 6 GM INH SCH ×2 (09:43→21:15)
[2016-12-24] MEDS: LUBIPROSTONE 24 MCG CAPSULE PO SCH ×2 (09:43→21:14)
[2016-12-24] MEDS: GABAPENTIN 300 MG CAPSULE PO SCH ×2 (09:43→21:14)
[2016-12-24] MEDS: LORATADINE 10 MG TABLET PO SCH (09:43)
[2016-12-24] MEDS: DOXYCYCLINE HYCLATE 100 MG CAPSULE PO SCH ×2 (09:43→21:14)
[2016-12-24] MEDS: FLUCONAZOLE 100 MG TABLET PO SCH (09:43)
--- NOTE | 2016-12-24 11:35 | Hospitalist Progress Note ---
Assessment and Plan (1) Diabetes Status: Acute Assessment and plan: Takes Levemir BID outpatient, she takes 40 units bid Restarted Lantus BID, increased yesterday SSI Her A1C is elevated at 11, so she is also uncontrolled regularly on top of the steroids Steroids decreased today, hopefully that will help Current Visit: No Qualifiers: Diabetes mellitus complication status: with hyperglycemia (2) Asthma with exacerbation Status: Acute Assessment and plan: Pulmonary following duonebs, steroids, doxycycline Current Visit: Yes Hospitalist: Subjective Interval history: No acute events overnight. Patient continues to gradually improve. Will check for the need of home oxygen today. Possible discharge tomorrow. Exam - Constitutional Vitals: Period Temp Pulse Resp BP Sys/Livingston Pulse Ox Last 24 Hr 96.1 F-98.1 F 50-94 18-20 111-133/58-71 96-100 General appearance: over weight - Head Head exam: Present: normocephalic, atraumatic - Eye Eye exam: Present: EOMI Pupils: Present: CHRIS - ENT ENT exam: Present: normal exam - Neck Neck exam: Present: normal inspection - Respiratory Respiratory exam: Present: clear to auscultation bilaterally. Absent: rhonchi, wheezes - Cardiovascular Cardiovascular exam: Present: regular rate and rhythm - GI/Abdominal GI/Abdominal exam: Present: normal bowel sounds, soft. Absent: tenderness, rebound - Extremities Exam Extremities exam: Present: normal inspection - Back Exam Back exam: Present: normal inspection - Neurological Exam Neurological exam: Present: alert, oriented X3 - Psychiatric Psychiatric exam: Present: normal affect, normal mood - Skin Skin exam: Present: warm, intact Results - Labs CBC & BMP: 12/24/16 05:10 12/23/16 06:09
[2016-12-24] MEDS ORDERED: LACTULOSE 20 GM/30 ML UDCUP PO PRN (11:45)
[2016-12-24] MEDS: MONTELUKAST 10 MG TABLET PO SCH (21:14)
[2016-12-24] MEDS: ROSUVASTATIN 10 MG TABLET PO SCH (21:14)
[2016-12-25] MEDS: ALBUTEROL/IPRATROPIUM 3 ML NEB RESP TX SCH ×3 (01:09→12:29)
[2016-12-25] MEDS: INSULIN REGULAR 100 UNIT/ML SUBCUT SCH ×2 (08:53→11:59)
[2016-12-25] MEDS: INSULIN GLARGINE 100 UNIT/ML SUBCUT SCH (09:12)
[2016-12-25] MEDS: methylPREDNISolone SOD SUC 40 MG/1 ML VIAL IV SCH (09:13)
[2016-12-25] MEDS: PANTOPRAZOLE 40 MG TABLET PO SCH (09:20)
[2016-12-25] MEDS: BUMETANIDE 1 MG TABLET PO SCH (09:20)
[2016-12-25] MEDS: guaiFENesin 200 MG/10 ML UDCUP PO PRN (09:20)
[2016-12-25] MEDS: ASPIRIN 325 MG TABLET PO SCH (09:20)
[2016-12-25] MEDS: GABAPENTIN 300 MG CAPSULE PO SCH (09:20)
[2016-12-25] MEDS: FLUCONAZOLE 100 MG TABLET PO SCH (09:20)
[2016-12-25] MEDS: LORATADINE 10 MG TABLET PO SCH (09:20)
[2016-12-25] MEDS: LUBIPROSTONE 24 MCG CAPSULE PO SCH (09:20)
[2016-12-25] MEDS: EZETIMIBE 10 MG TABLET PO SCH (09:20)
[2016-12-25] MEDS: BUDESONIDE/FORMOTEROL 160-4.5 INHALER 6 GM INH SCH (09:21)
[2016-12-25] MEDS: DOXYCYCLINE HYCLATE 100 MG CAPSULE PO SCH (09:21)
[2016-12-25] MEDS: LINACLOTIDE 145 MCG CAPSULE PO SCH (09:21)
--- NOTE | 2016-12-25 09:23 | Pulmonology Progress Note ---
Pulmonary - PN: Subj Interval history: 71-year-old lady with asthma exacerbation and acute bronchitis. Clearly improving. Her blood sugars are running too high. Will reduce steroids a little further. Probably could go home on oral medications tomorrow. 12/25/2016 patient much improved. Lungs are clear. Change to oral prednisone. I would taper her off rather quickly over 2 or 3 days. Glucoses remain somewhat elevated. Exam (Progress Note) - Constitutional Vitals: Period Temp Pulse Resp BP Sys/Livingston Pulse Ox Last 24 Hr 96.1 F-98.9 F 51-90 16-20 110-133/50-66 94-100 Exam: Patient is alert and oriented. Vital signs normal. Pupils react to light. Throat is clear. Neck supple no bruits. Chest shows prolonged expiratory phase but no wheezes. Heart normal rate and rhythm no murmurs. Abdomen soft nontender no masses. Extremities no clubbing cyanosis or edema. Calves nontender. Little change from yesterday Results - Labs CBC & BMP: 12/24/16 05:10 12/23/16 06:09 Lab Results: I have reviewed the past 24 hour labs Assessment and Plan (1) Asthma exacerbation Status: Acute Assessment and plan: Agree with corticosteroids bronchodilators and empiric antibiotics. Would go light on the steroids based on her diabetes. She needs a little bit more for controller medications. Will add Spiriva. 12/24/16 much improved. Taper steroids further. Probably home with oral medications tomorrow. She will need to stay on Symbicort and we have added Spiriva. Also on Singulair. 12/25/2016 much improved. Continue Symbicort and Spiriva. Continue Singulair. Change to oral prednisone and wean off over 3 days. 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 No signs of recurrence on follow-up as per records from [place]. Will allow them to continue following there. I see no reason to get a CT scan here without the ones that are to compare. She is due for another CT later this year and [place]. She was not sure exactly when. She has never been a smoker 12/24/2016 felt to be in remission. Being followed in [place]. Will not order any CTs here. 12/25/2016 needs follow-up in [place]. Current Visit: No (3) Diabetes Status: Acute Assessment and plan: Sliding scale insulin. Blood sugar this morning was over 400. She is very sensitive to steroids. Reduce steroids 12/24/2016 blood sugars remain high. Tapering steroids. 12/25/2016 the should improve with reducing steroids. Current Visit: No Qualifiers: Diabetes mellitus complication status: with hyperglycemia (4) Bronchitis Status: Acute Assessment and plan: Antibiotics and bronchodilators. Low-dose steroids. 12/24/2016 still coughing but not producing sputum. Dyspnea is better. 12/25/2016 much improved. Current Visit: Yes (5) Moniliasis of mouth Status: Acute Assessment and plan: We will put on Diflucan. Discussed with patient means of preventing this while on inhaled steroids. Either gargling with mouthwash or walking her tongue with water, After each dose. 12/24/2016 this is better after Diflucan. Current Visit: Yes
--- NOTE | 2016-12-25 12:32 | Discharge Summary ---
<Chan Dominique - Last Filed: 12/25/16 12:25> Hospital Course - Hospital Course Hospital Course: This is a very pleasant 71-year-old female that presented to the ED at [facility] on December 20, 2016 for the evaluation of chest congestion, shortness of breath, and cough 1 week. Patient has a very complex medical history significant for: Asthma, hypertension, insulin-dependent diabetes mellitus, bronchitis, and adenocarcinoma of the lung. Patient has a surgical history significant for a right lung lobectomy (March 2010), tonsillectomy, adenoidectomy, hernia repair, and hysterectomy. The patient reported the onset of the above symptoms 1 week prior to presentation. The patient had been previously seen and evaluated in [place], [place] on the week prior to presentation for the above complaint. The patient reports that she was seen and evaluated and started on doxycycline. At the time of ED presentation, the patient had a audible wheeze at the time of triage. The patient was immediately assessed and inhaled bronchodilators were given. Chest x-ray was obtained which was negative for any active cardiopulmonary disease. The patient was subsequently admitted to the hospitalist services with an admitting diagnosis of asthma exacerbation and bronchitis for continuation of care. At the time of admission, aggressive inhaled bronchodilators, intravenous corticosteroids, and empiric antibiotics were initiated. Due to the complexity of the patient's respiratory status and documented comorbidities, a pulmonary consultation was requested. The patient's condition gradually improved. The patient's condition is stable. She has not experienced any significant overnight events. The patient's vital signs are stable and she has been afebrile. Today, we feel that she is indeed appropriate for discharge to follow -up with her primary care physician and executive communications manager as indicated. Discharge Plan - Discharge Data Disposition: Disch To Home/Self Care - Discharge Medications New Montelukast Tab [Singulair Tab] 10 mg PO BEDTIME #30 tablet predniSONE TAB [PredniSONE] 20 mg PO DAILY #3 tablet Continue Rosuvastatin Calcium 10 mg PO BEDTIME Ezetimibe [Zetia] 10 mg PO DAILY Aspirin 325 mg PO DAILY Tizanidine HCl 2 mg PO QOTHER DAY PRN PRN Reason: Muscle Pain Amlodipine Besylate 2.5 mg PO DAILY PRN PRN Reason: Hypertension Gabapentin 300 mg PO BID Fenofibrate [Tricor] 145 mg PO DAILY Fluticasone 50 Mcg Nasal [place] [Flonase Nasal [place]] 1 sprays PO DAILY Budesonide/Formoterol 160-4.5 [Symbicort 160-4.5] 2 puff INH BID #1 inhaler Docusate Sodium Cap [Colace Cap] 100 mg PO BID PRN #0 capsule PRN Reason: Constipation Insulin Aspart [NovoLOG] See Protocol SUBCUT DAILY PRN PRN Reason: Glucose Management Insulin Regular, Human [NovoLIN R] See Protocol SUBCUT BID W/MEALS Loratadine Tab [Claritin Tab] 10 mg PO DAILY Albuterol/Ipratropium Neb [Duoneb] 3 ml RESP TX RT Q6H #180 Bumetanide Tab [Bumex Tab] 2 mg PO DAILY tablet Lubiprostone [Amitiza] 1 tablet PO BID Discontinued Welling-3S/Dha/Epa/Fish Oil [Fish Oil Welling-3 Softgel] 1 each PO DAILY Doxycycline Hyclate Cap [Vibramycin Cap] 100 mg PO BID #10 capsule predniSONE TAB [PredniSONE] 10 mg PO DAILY #0 Insulin Detemir [Levemir] 20 units SUBCUT QAM PRN PRN Reason: Glucose Management Insulin Detemir [Levemir] 70 unit SUBCUT BEDTIME No Action Cinnamon Bark [Cinnamon] 500 mg PO DAILY - Follow Up or Referral - Forms/Instructions Exam - Constitutional Vitals: Period Temp Pulse Resp BP Sys/Livingston Pulse Ox Last 24 Hr 97.4 F-98.9 F 51-71 16-20 99-121/50-61 94-100 Discharge Results Labs on day of discharge: Labs from last 24 hours 12/25/16 12/25/16 12/25/16 11:44 11:02 07:23 POC Glucose 118 H 70 L 88 12/24/16 12/24/16 12/24/16 21:14 14:58 07:14 POC Glucose 360 H 357 H 234 H DS: Provider Date of admission: 12/20/16 14:51 Primary care physician: . No PCP Attending physician on admission: Karl Kirk MD Consults: 12/20/16 16:29 Consult to Physician [CONS] Routine Comment: asthma exacerbation, hx of lung cancer/lobectomy Consulting Provider: Eliot Mcmanus Person Notified: PEDRO Date Notified: 12/20/16 Time Notified: 16:37 Consult Notification Comment: DR. MCMANUS WILL SEE IN AM 12/20/16 16:48 Consult to Dietitian [CONS] Routine Reason for Dietitian: Other Consult Comment: poor appetite 12/21/16 08:57 Consult to Physician [CONS] Routine Comment: Consulting Provider: Consult to Specialist Group: Pulmonology Person Notified: md aware Discharging clinician: Chan Dominique CNP <Karl Kirk - Last Filed: 12/25/16 13:14> Diagnosis - Discharge Diagnosis (1) Diabetes Status: Chronic (2) Asthma with exacerbation Status: Resolved Discharge Plan - Discharge Data Condition at Discharge: Stable Discharge Diet: diabetic diet Activity: increase activity as tolerated Hygiene: no restrictions Weight Bearing at Discharge: weight bear as tolerated Contact your physician if you experience:: fever over 101, Shortness of breath Exam - Constitutional General appearance: over weight - Head Head exam: Present: normocephalic, atraumatic - Eye Eye exam: Present: EOMI Pupils: Present: CHRIS - ENT ENT exam: Present: normal exam - Neck Neck exam: Present: normal inspection - Respiratory Respiratory exam: Present: clear to auscultation bilaterally. Absent: rhonchi, wheezes - Cardiovascular Cardiovascular exam: Present: regular rate and rhythm - GI/Abdominal GI/Abdominal exam: Present: normal bowel sounds, soft. Absent: tenderness, rebound - Extremities Exam Extremities exam: Present: normal inspection - Back Exam Back exam: Present: normal inspection - Neurological Exam Neurological exam: Present: alert, oriented X3 - Psychiatric Psychiatric exam: Present: normal affect, normal mood - Skin Skin exam: Present: warm, intact
[2016-12-25 16:40] VITALS: BP 122/62
== END 2016-12-25 16:15 | disposition home or self-care (01) | DRG 202 ==
LOC: N.ED 11:30 → SUATTDRO 14:51 → N.EDINP 14:51 → N.5E 16:29
PROVIDERS: ADMIT Internal Medicine; ATTEND Internal Medicine